=== PATIENT | female | born 1975 | race Caucasian/White ===

== ENCOUNTER 2016-02-20 13:27 | Emergency (ER) | payer BC ==
[~2016-02-20] VITALS: Ht 162.6 cm; Wt 79.0 kg
[~2016-02-20 13:27] MED LIST: ALBU1AER9 INH; ANT25 PO; CETI10TA84 PO; TRIA1SPR2 NAE
[2016-02-20 13:36] VITALS: TEMP 36.8; Ht 162.6 cm; Wt 79.0 kg
[2016-02-20] MEDS ORDERED: LORAZEPAM 2 MG/ML 1 ML VIAL IV STA ×2 (14:31→16:15)
[2016-02-20] MEDS ORDERED: OPTIRAY 320 IV PRN (15:00)
[2016-02-20 15:06] LABS: BASO % 0.6 %; BASO ABS # 0.07 K/uL (0-0.2); COMPLETE YES; EOS % 2.3 %; IG% 0.2 %; LYMPH % 24.2 %; LYMPH ABS # 2.71 K/uL (1.2-3.4); MEAN CELL VOLUME 85.6 fL (80-100); MEAN CORPUSCULAR HEMOGLOBIN 30.6 pg (25-34); MEAN CORPUSCULAR HGB CONC 35.8 g/dl (32-36); MEAN PLATELET VOLUME 9.6 fL (7.4-10.4); MONO % 4.6 %; NEUT % 68.1 %; PLATELET COUNT 331 K/uL (130-400); RED BLOOD COUNT 4.44 M/uL (4.2-5.4); WHITE BLOOD COUNT 11.21 K/uL (4.8-10.8)
[2016-02-20 15:27] LABS: BUN/CREATININE RATIO 13.4 (10-20); CALCIUM 8.7 mg/dl (8.5-10.1); CREATININE 0.71 mg/dl (0.60-1.20); POTASSIUM 3.8 mmol/L (3.5-5.1)
--- NOTE | 2016-02-20 16:34 | DIAGNOSTIC IMAGING REPORT ---
CERVICAL SPINE CT CT DOSE: 950.56 mGy.cm HISTORY: NECK/BACK PAIN S/P FALL TECHNIQUE: Multiaxial CT images of the cervical spine were performed and reformatted in the sagittal and coronal plane without the use of contrast. COMPARISON: None. FINDINGS: No fractures. No subluxation. Prevertebral soft tissues and the C1-C2 interval are intact. No pneumothorax. There is a 8 mm right thyroid nodule. IMPRESSION: No fractures within the cervical spine. An 8 mm right thyroid nodule. Electronically signed by: Yamil Barros M.D. 02/20/2016 4:23 PM
--- NOTE | 2016-02-20 16:34 | DIAGNOSTIC IMAGING REPORT ---
HEAD CT NONCONTRAST CT DOSE: HISTORY: Headache. Fall. TECHNIQUE: Multiaxial CT images of the head were performed without the use of intravenous contrast. Automated exposure control was utilized for this study. Comparison: Head CT 10/12/2015 Findings: The paranasal sinuses and mastoid air cells are clear. The calvarium and skull base are intact. The ventricles and sulci are within normal limits. There is no mass, hematoma, midline shift, or acute infarct. Impression: No acute intracranial abnormality. Electronically signed by: Yamil Barros M.D. 02/20/2016 4:20 PM
--- NOTE | 2016-02-20 16:36 | DIAGNOSTIC IMAGING REPORT ---
THORACIC SPINE CT CT DOSE: HISTORY: NECK/BACK PAIN S/P FALL TECHNIQUE: Multiaxial CT images of the thoracic spine were performed and reformatted in the sagittal and coronal plane without the use of contrast. COMPARISON: None. FINDINGS: No fractures. No subluxation. Paraspinal soft tissues are unremarkable. Mild degenerative disc disease within the mid thoracic spine. Small calcified disc fragment at T7-T8 this does not result significant central canal or neural foraminal narrowing. IMPRESSION: No fractures within the thoracic spine. Electronically signed by: Yamil Barros M.D. 02/20/2016 4:34 PM
--- NOTE | 2016-02-20 16:39 | DIAGNOSTIC IMAGING REPORT ---
LUMBAR SPINE CT CT DOSE: HISTORY: NECK/BACK PAIN S/P FALL TECHNIQUE: Multiaxial CT images of the lumbar spine were performed and reformatted in the sagittal and coronal plane without the use of contrast. COMPARISON: None. FINDINGS: No fractures. No subluxation. Paraspinal soft tissues are unremarkable. IMPRESSION: No fractures within the lumbar spine. Electronically signed by: Yamil Barros M.D. 02/20/2016 4:36 PM
--- NOTE | 2016-02-20 16:40 | DIAGNOSTIC IMAGING REPORT ---
ABDOMEN AND PELVIS CT WITH IV CONTRAST CT DOSE: 1017.19 mGy.cm HISTORY: Trauma. Pain. LBP/tailbone pain s/p fall TECHNIQUE: Multiaxial CT images of the abdomen and pelvis were performed following the use of intravenous contrast. COMPARISON STUDY: None. FINDINGS: The lung bases are clear. The liver, spleen, gallbladder, pancreas, kidneys, and adrenal glands are within normal limits. No bowel wall thickening or obstruction. The pelvic organs are unremarkable. No suspicious lytic or blastic osseous lesions. 2.5 cm left ovarian cyst. IMPRESSION: No significant abnormality identified within the abdomen or pelvis. 2.5 cm left ovarian cyst Electronically signed by: Lui Allan M.D. 02/20/2016 4:38 PM
--- NOTE | 2016-02-20 16:44 | DIAGNOSTIC IMAGING REPORT ---
CHEST CT WITH CONTRAST CT DOSE: HISTORY: Right SIDED CHEST PAIN/POSTERIOR RIB PAIN S/P FALL TECHNIQUE: Multiaxial CT images of the chest were performed following the intravenous administration of contrast. COMPARISON: None. FINDINGS: There is a 4 mm indeterminate pulmonary nodule within the right middle lobe on image 164. There is an 8 mm right thyroid nodule. The mediastinal vascular structures are within normal limits. No mediastinal or hilar lymphadenopathy. No pleural effusion or pneumothorax. Limited views of the upper abdomen demonstrate a normal liver and spleen. IMPRESSION: No significant abnormality identified within the chest. A 4 mm right middle lobe indeterminate pulmonary nodule. Please refer to the chart below for recommended follow-up. Please refer to below summary of Fleischner criteria recommendations for follow-up of incidental CT nodules (Claire Thomas, Guidelines for management of small pulmonary nodules detected on CT scans: A statement from the Fleischner Society, Radiology 237: [phone].) Low Risk Patient: Minimal or no smoking or other known risk factors for malignancy <=4 mm: No follow-up needed. >4-6 mm: Initial follow-up CT at 12 months; if unchanged, no further follow-up. >6-8 mm: Initial follow-up CT at 6-12 months then at 18-24 months if no change. >8 mm: Follow-up CT at \R\3, 9, 24 months, or PET and/or biopsy. High Risk Patient: History of smoking or other known risk factors <=4 mm: Follow-up at 12 months; if unchanged, no further follow-up. >4-6 mm: Initial follow-up CT at 6-12 months then at 18-24 months if no change. >6-8 mm: Initial follow-up CT at 3-6 months then at 9-12 and 24 months if no change. >8 mm: Same as low risk patient. Note: Nodule size measured as average of length and width. Ground glass or partly solid nodules may require longer follow-up to exclude indolent adenocarcinoma. Electronically signed by: Yamil Barros M.D. 02/20/2016 4:42 PM
[2016-02-20 17:04] VITALS: BP 121/86; PULSE 77; O2SAT 97
--- NOTE | 2016-02-20 19:21 | EMERGENCY ROOM VISIT NOTE ---
History First contact with patient: 14:18 Chief Complaint: CHEST PAIN Stated Complaint: CHEST PAIN, LIGHTHEADED, DIZZY Nursing Triage Summary: chest pain started at 0830 while at rest pt c/o right sided pain "feels like stabbing" pt fell yesterday unrelated and c/o all over bodyaches and back pain History of Present Illness The patient is a 40 year old female who presents to the Emergency Room with complaints of multiple symptoms after falling yesterday while rollerskating. The patient reports that she landed directly on her buttocks, and felt pain go up her back and into the neck. The patient reports that she is now started to develop a generalized headache that is progressively worsened. She reports feeling nauseated and weak. She reports discomfort in the right side of her chest. She denies any shortness of breath, and her symptoms are not worsened with deep breathing. She denies any paresthesias or numbness of the upper or lower extremities. She rates her overall discomfort a 5 out of 10. Review of Systems HEENT: Denies dizziness, visual problems, hearing loss, tinnitus. Denies difficulty swallowing or oral lesions. PULMONARY: Denies cough, shortness of breath, sputum production or hemoptysis. CARDIOVASCULAR: Denies palpitations, dyspnea on exertion, orthopnea or peripheral edema. GASTROINTESTINAL: Denies diarrhea, constipation, nausea, vomiting, or abdominal pain. GENITOURINARY: Denies dysuria, frequency, urgency or nocturia. NEUROLOGIC: Denies history of epilepsy, CVA, TIA or chronic headaches. MUSCULOSKELETAL: Denies history of joint tenderness/swelling. SKIN: Denies rashes or lesions. PSYCHIATRIC: Denies history of depression or mental illness. ENDOCRINE: Denies history of diabetes or thyroid disorders. Past Medical/Surgical History Medical Problems: (1) Asthma (2) Hx of migraines (3) IBS (irritable bowel syndrome) Surgical Problems: (1) History of appendectomy (2) History of tonsillectomy Family History Cancer Diabetes mellitus Gallbladder disease Heart disease Hypertension Lung disease Social History Smoking Status: Never Smoker Alcohol Use: none Drug Use: none Marital Status: Housing Status: lives with family Occupation Status: employed Current/Historical Medications Scheduled Cetirizine (Zyrtec), 10 MG PO DAILY Multivitamin (Multivitamin), 1 TAB PO DAILY Triamcinolone Acetonide (Nasal (Nasacort-Aq Nasal Inh), 1 SPRAY KAMRAN DAILY Scheduled PRN Albuterol (Proair Hfa), 2 PUFFS INH Q4H PRN for SOB/Wheeze/Prior To Exercise Epinephrine (Epipen), 0.3 MG IM UD PRN for ALLERGIC REACTION Allergies Coded Allergies: Prednisone (Verified Adverse Reaction, Intermediate, HYPERTENSION, 02/20/16) Physical Exam Vital Signs Date Time Temp Pulse Resp B/P Pulse Ox O2 Delivery O2 Flow Rate FiO2 02/20/16 17:04 77 20 121/86 97 Room Air 02/20/16 15:34 77 20 159/101 100 Room Air 02/20/16 13:36 36.8 80 20 154/93 98 Room Air Pain Rating (0-10): 5.0 Physical Exam CONSTITUTIONAL: Healthy and well nourished. Alert and oriented X 3 with positive affect. Patient appears in moderate discomfort with pain. HEENT: Normocephalic, atraumatic. Pupils equal, round and reactive. No epistaxis, hemotympanum, raccoon's eyes, subconjunctival hemorrhage or Bryant sign. NECK: Examination shows generalized tenderness to palpation of the right cervical musculature. She is otherwise moving the neck without significant discomfort. RESPIRATORY: Clear to auscultation bilaterally with no wheezing, crackles, rhonchi or stridor. Deep breathing does not worsen her discomfort. CARDIOVASCULAR: Regular rate and rhythm with no murmurs, rubs or gallops. GASTROINTESTINAL: Bowel sounds present in all quadrants. Soft and nontender to palpation. MUSCULOSKELETAL: Complaining comprehensive musculoskeletal exam was performed. The patient has mild tenderness to palpation through the thoracolumbar spine and paraspinous muscles. No palpable spasms noted. She has mild tenderness over the sacral region and SI joints. Pelvis stable with rock. Negative logroll. Negative straight leg raise. The patient has no tenderness to palpation through the anterior ribs or costochondral joints. Upper and lower extremity distal pulses are intact. INTEGUMENTARY: No rash or other significant dermatologic conditions noted. NEUROLOGIC: Cranial nerves II-XII grossly intact. No focal neurologic deficits noted. Upper and lower extremities are sensory intact. Medical Decision & Procedures ER Provider Diagnostic Interpretation: Multiple CT imaging studies were performed of the head, cervical spine, thoracolumbar spine, pelvis, abdomen and chest, all of which were normal. The patient did have incidental findings of an 8 mm right thyroid nodule, 4 mm right lung nodule, and 2.5 cm left ovarian cyst. The patient is aware of her thyroid nodule and has a history of ovarian cysts. Radiologist reports were reviewed. Laboratory Results 02/20/16 14:55 Red Blood Count 4.44, Mean Corpuscular Volume 85.6, Mean Corpuscular Hemoglobin 30.6, Mean Corpuscular Hemoglobin Concent 35.8, Mean Platelet Volume 9.6, Neutrophils (%) (Auto) 68.1, Lymphocytes (%) (Auto) 24.2, Monocytes (%) (Auto) 4.6, Eosinophils (%) (Auto) 2.3, Basophils (%) (Auto) 0.6, Neutrophils # (Auto) 7.63, Lymphocytes # (Auto) 2.71, Monocytes # (Auto) 0.52, Eosinophils # (Auto) 0.26, Basophils # (Auto) 0.07 02/20/16 14:55 Test 02/20/16 14:55 White Blood Count 11.21 K/uL (4.8-10.8) Red Blood Count 4.44 M/uL (4.2-5.4) Hemoglobin 13.6 g/dL (12.0-16.0) Hematocrit 38.0 % (37-47) Mean Corpuscular Volume 85.6 fL (80-100) Mean Corpuscular Hemoglobin 30.6 pg (25-34) Mean Corpuscular Hemoglobin Concent 35.8 g/dl (32-36) Platelet Count 331 K/uL (130-400) Mean Platelet Volume 9.6 fL (7.4-10.4) Neutrophils (%) (Auto) 68.1 % Lymphocytes (%) (Auto) 24.2 % Monocytes (%) (Auto) 4.6 % Eosinophils (%) (Auto) 2.3 % Basophils (%) (Auto) 0.6 % Neutrophils # (Auto) 7.63 K/uL (1.4-6.5) Lymphocytes # (Auto) 2.71 K/uL (1.2-3.4) Monocytes # (Auto) 0.52 K/uL (0.11-0.59) Eosinophils # (Auto) 0.26 K/uL (0-0.5) Basophils # (Auto) 0.07 K/uL (0-0.2) RDW Standard Deviation 41.5 fL (36.4-46.3) RDW Coefficient of Variation 13.2 % (11.5-14.5) Immature Granulocyte % (Auto) 0.2 % Immature Granulocyte # (Auto) 0.02 K/uL (0.00-0.02) Anion Gap 11.0 mmol/L (3-11) Est Creatinine Clear Calc Drug Dose 107.1 ml/min Estimated GFR () 123.5 Estimated GFR (Non- 106.5 BUN/Creatinine Ratio 13.4 (10-20) Calcium Level 8.7 mg/dl (8.5-10.1) Medications Administered Medications (Trade) Dose Ordered Sig/Igor Route Start Time Stop Time Status Last Admin Dose Admin Lorazepam (Ativan Inj) 1 mg NOW STAT IV 02/20/16 14:31 02/20/16 14:35 DC 02/20/16 15:32 1 MG Lorazepam (Ativan Inj) 1 mg NOW STAT IV 02/20/16 16:15 02/20/16 16:16 DC 02/20/16 16:15 1 MG ED Course Patient history and physical exam were performed. Nurse's notes were reviewed. Vital signs were reviewed and were normal. The patient refused analgesics, but reported that if she needed a CT scan, she would need some medicine that she is extremely claustrophobic. She was administered Ativan 1 mg IVP. While in the scanner, she did require an additional dose of Ativan 1 mg IVP. The patient tolerated the remainder of her CT study. CT images were normal. The patient was advised that her symptoms are likely secondary to compression injury of her back. I also suspect that her headache is from a concussion, although she did not hit her head. The patient was instructed to rest and remain well-hydrated. Ibuprofen and Tylenol in alternating fashion as needed for pain relief. She was encouraged to follow-up with her PCP for further management, returning to the emergency department for any significantly worsening symptoms. The patient was happy with plan of care, voiced understanding of all discharge instructions, and rated her pain a 4 out of 10 at the conclusion of my exam. Medical Decision See previous section Impression Primary Impression: Concussion Additional Impressions: Thyroid nodule, Back strain, Fall from roller skates, Left ovarian cyst, Nodule of right lung Departure Information Dispostion Home / Self-Care Condition GOOD Forms HOME CARE DOCUMENTATION FORM, IMPORTANT VISIT INFORMATION Patient Instructions A Signature Page, [facility], ED Concussion Additional Instructions Rest and avoid strenuous activities. Intermittently apply ice to areas of discomfort. Read concussion handout. Ibuprofen 800 mg and/or Tylenol 1000 mg every 8 hours. You may also alternate these medications for more effective pain relief: Ibuprofen --4 HRS--> Tylenol --4 HRS--> ibuprofen --4 HRS--> Tylenol .... Follow-up with your family doctor as needed for further management.
== END 2016-02-20 17:12 | disposition home or self-care (01) ==
LOC: C.EDB 13:30
DX: S06.0X0A Concussion without loss of consciousness, initial encounter (principal); S39.012A Strain of muscle, fascia and tendon of lower back, initial encounter; W19.XXXA Unspecified fall, initial encounter; Y93.51 Activity, roller skating (inline) and skateboarding; N83.202 Unspecified ovarian cyst, left side; R91.1 Solitary pulmonary nodule; E04.1 Nontoxic single thyroid nodule; J45.909 Unspecified asthma, uncomplicated; K58.9 Irritable bowel syndrome, unspecified; Z98.890 Other specified postprocedural states; Z88.8 Allergy status to other drugs, medicaments and biological substances; Z80.9 Family history of malignant neoplasm, unspecified; Z83.3 Family history of diabetes mellitus; Z83.79 Family history of other diseases of the digestive system; Z82.49 Family history of ischemic heart disease and other diseases of the circulatory system

== ENCOUNTER 2016-09-12 15:38 | Emergency (ER) | payer BC ==
[~2016-09-12] VITALS: Ht 162.6 cm; Wt 78.0 kg
[~2016-09-12 15:38] MED LIST changes: -ANT25 PO
[2016-09-12 15:42] VITALS: TEMP 36.7; Ht 162.6 cm; Wt 78.0 kg
[2016-09-12] MEDS ORDERED: METOCLOPRAMIDE HCL INJ 5 MG/ML 2 ML VIAL IV STA (15:56)
[2016-09-12] MEDS ORDERED: KETOROLAC TROMETHAMINE 30 MG/ML VIAL IV STA (15:56)
[2016-09-12] MEDS ORDERED: SODIUM CHLORIDE 0.9% 1000ML 1,000 ML IV STA (15:56)
--- NOTE | 2016-09-12 15:56 | EMERGENCY ROOM VISIT NOTE ---
History Report prepared by Kadeem: Pal Ramirez Under the Supervision of: Dr. Trever Hernandez M.D. First contact with patient: 15:46 Chief Complaint: ABDOMINAL PAIN Stated Complaint: SHARP LEFT LOWER ABD PAIN, LEFT UPPER FLANK CRAMP History of Present Illness The patient is a 40 year old female who presents to the Emergency Room with complaints of worsening left lower quadrant abdominal pain starting last week. She describes it as a sharp pain. She was evaluated by a walk-in clinic this week. 2 days ago, she had a pelvic ultrasound with negative results. She is now also having left flank pain. She was referred to the Emergency Room by her PCP. The patient denies any blood in stool, urinary symptoms, or any other complaints. She has an IUD. She denies any chance of . The patient had a colonoscopy done in September 2012 which was concerning for hemorrhoids and constipation. Source of History: patient Onset: last week Position: abdomen (LLQ) Quality: sharp Timing: worsening Associated Symptoms: No urinary symptoms Review of Systems See HPI for pertinent positives & negatives. A total of 10 systems reviewed and were otherwise negative. Past Medical & Surgical Medical Problems: (1) Asthma (2) Bronchitis (3) Hx of migraines (4) IBS (irritable bowel syndrome) (5) Pneumonia Surgical Problems: (1) History of appendectomy (2) History of appendectomy (3) History of tonsillectomy (4) History of tonsillectomy Family History Cancer Diabetes mellitus Gallbladder disease Heart disease Hypertension Lung disease Social History Smoking Status: Never Smoker Alcohol Use: none Drug Use: none Marital Status: Housing Status: lives with family Occupation Status: employed Current/Historical Medications Scheduled Cyanocobalamin (Vitamin B-12 1000 Mcg), 1 TAB SL DAILY Loratadine (Claritin), 10 MG PO DAILY Multivitamin (Multivitamin), 1 TAB PO DAILY Sertraline HCl (Sertraline HCl), 50 MG PO DAILY [Richie], 1 TAB PO DAILY Scheduled PRN Clonazepam (Klonopin), 0.5 MG PO TID PRN for Anxiety/Insomnia Epinephrine (Epipen), 0.3 MG IM UD PRN for ALLERGIC REACTION Triamcinolone Acetonide (Nasal (Nasacort Allergy 24Hr), 1 SPRAY KAMRAN DAILY PRN for Nasal Congestion [Proair], 2 PUFF INH Q4 PRN for SOB/WHEEZE/PRIOR TO EXERCISE Allergies Coded Allergies: Prednisone (Verified Adverse Reaction, Intermediate, HYPERTENSION, 02/20/16) Physical Exam Vital Signs Date Time Temp Pulse Resp B/P (MAP) Pulse Ox O2 Delivery O2 Flow Rate FiO2 09/12/16 17:28 79 18 134/84 98 Room Air 09/12/16 15:42 36.7 88 20 137/98 97 Room Air Physical Exam GENERAL: Patient is a healthy-appearing well-nourished HEAD: Normocephalic atraumatic EYES: Ocular movements intact pupils equal and react to light OROPHARYNX mucous membranes are moist no exudates present no erythema or edema present NECK: Supple no nuchal rigidity CHEST: Good equal expansion LUNGS: Clear and equal to auscultation CARDIAC: Normal S1 and S2 ABDOMEN: Soft nontender no guarding BACK: No CVA tenderness EXTREMITIES: No pain upon palpation normal muscle strength in all groups no clubbing cyanosis or edema NEURO: Patient is following commands and answering questions appropriately. Alert and oriented x3 Cranial Nerves 2-12 grossly intact Medical Decision & Procedures ER Provider Diagnostic Interpretation: CT results as stated below per my review and radiologist interpretation: CT OF THE ABDOMEN AND PELVIS WITHOUT CONTRAST CLINICAL HISTORY: Left flank pain. COMPARISON STUDY: CT of the abdomen and pelvis July or 2016. TECHNIQUE: Axial images of the abdomen and pelvis were obtained without IV contrast. Images were reviewed in the axial, sagittal, and coronal planes. A dose lowering technique was utilized adhering to the principles of ALARA. FINDINGS: No renal, ureteral or bladder calculi are identified. There is no hydronephrosis or hydroureter. Evaluation of the abdomen and pelvis is suboptimal on this unenhanced exam. The liver, spleen, adrenal glands and pancreas are unremarkable. There is no evidence for a bowel obstruction. The appendix is not visualized. An intrauterine device is appropriately positioned by CT. Note is made of a 2.6 cm hypodense lesion arising from the left ovary. There may be additional 2.7 cm intermediate attenuation left ovarian lesion. Skeletal structures are unremarkable. IMPRESSION: 1. No urinary calculi or hydronephrosis. 2. No acute process within the abdomen or pelvis on unenhanced exam. 3. Two left ovarian lesions. One lesion likely reflects a cyst/dominant follicle while the other lesion is intermediate attenuation. This may reflect a hemorrhagic cyst. A follow-up pelvic ultrasound in 6 weeks to ensure resolution is recommended. Electronically signed by: Raúl Love M.D. 09/12/2016 4:44 PM Dictated Date/Time: 09/12/2016 4:36 PM Laboratory Results 09/12/16 15:15 Red Blood Count 4.38, Mean Corpuscular Volume 87.2, Mean Corpuscular Hemoglobin 30.4, Mean Corpuscular Hemoglobin Concent 34.8, Mean Platelet Volume 9.7, Neutrophils (%) (Auto) 67.4, Lymphocytes (%) (Auto) 22.7, Monocytes (%) (Auto) 6.8, Eosinophils (%) (Auto) 2.3, Basophils (%) (Auto) 0.6, Neutrophils # (Auto) 7.78, Lymphocytes # (Auto) 2.62, Monocytes # (Auto) 0.78, Eosinophils # (Auto) 0.27, Basophils # (Auto) 0.07 09/12/16 15:15 Test 09/12/16 15:15 09/12/16 16:00 White Blood Count 11.54 K/uL (4.8-10.8) Red Blood Count 4.38 M/uL (4.2-5.4) Hemoglobin 13.3 g/dL (12.0-16.0) Hematocrit 38.2 % (37-47) Mean Corpuscular Volume 87.2 fL (80-100) Mean Corpuscular Hemoglobin 30.4 pg (25-34) Mean Corpuscular Hemoglobin Concent 34.8 g/dl (32-36) Platelet Count 369 K/uL (130-400) Mean Platelet Volume 9.7 fL (7.4-10.4) Neutrophils (%) (Auto) 67.4 % Lymphocytes (%) (Auto) 22.7 % Monocytes (%) (Auto) 6.8 % Eosinophils (%) (Auto) 2.3 % Basophils (%) (Auto) 0.6 % Neutrophils # (Auto) 7.78 K/uL (1.4-6.5) Lymphocytes # (Auto) 2.62 K/uL (1.2-3.4) Monocytes # (Auto) 0.78 K/uL (0.11-0.59) Eosinophils # (Auto) 0.27 K/uL (0-0.5) Basophils # (Auto) 0.07 K/uL (0-0.2) RDW Standard Deviation 41.6 fL (36.4-46.3) RDW Coefficient of Variation 13.0 % (11.5-14.5) Immature Granulocyte % (Auto) 0.2 % Immature Granulocyte # (Auto) 0.02 K/uL (0.00-0.02) Anion Gap 10.0 mmol/L (3-11) Est Creatinine Clear Calc Drug Dose 102.2 ml/min Estimated GFR () 117.5 Estimated GFR (Non- 101.3 BUN/Creatinine Ratio 18.2 (10-20) Calcium Level 9.0 mg/dl (8.5-10.1) Total Bilirubin 0.7 mg/dl (0.2-1) Direct Bilirubin 0.1 mg/dl (0-0.2) Aspartate Amino Transf (AST/SGOT) 6 U/L (15-37) Alanine Aminotransferase (ALT/SGPT) 15 U/L (12-78) Alkaline Phosphatase 31 U/L (45-117) Total Protein 7.5 gm/dl (6.4-8.2) Albumin 3.8 gm/dl (3.4-5.0) Lipase 135 U/L (73-393) Urine Color YELLOW Urine Appearance TURBID (CLEAR) Urine pH 8.5 (4.5-7.5) Urine Specific [place] 1.028 (1.000-1.030) Urine Protein NEG (NEG) Urine Glucose (UA) NEG (NEG) Urine Ketones NEG (NEG) Urine Occult Blood NEG (NEG) Urine Nitrite NEG (NEG) Urine Bilirubin NEG (NEG) Urine Urobilinogen NEG (NEG) Urine Leukocyte Esterase NEG (NEG) Urine WBC (Auto) 1-5 /hpf (0-5) Urine RBC (Auto) 5-10 /hpf (0-4) Urine Hyaline Casts (Auto) 1-5 /lpf (0-5) Urine Epithelial Cells (Auto) 10-20 /lpf (0-5) Urine Bacteria (Auto) NEG (NEG) Urine Test NEG (NEG) Labs reviewed by ED physician. Medications Administered Medications (Trade) Dose Ordered Sig/Igor Route Start Time Stop Time Status Last Admin Dose Admin Sodium Chloride 1,000 ml @ 999 mls/hr Q1H1M STAT IV 09/12/16 15:56 09/12/16 16:56 DC 09/12/16 15:56 999 MLS/HR Ketorolac Tromethamine (Toradol Inj) 30 mg NOW STAT IV 09/12/16 15:56 09/12/16 15:58 DC 09/12/16 16:18 30 MG Metoclopramide HCl (Reglan Inj) 10 mg NOW STAT IV 09/12/16 15:56 09/12/16 15:58 DC 09/12/16 15:56 10 MG Lorazepam (Ativan Inj) 1 mg NOW STAT IV 09/12/16 16:09 09/12/16 16:10 DC 09/12/16 16:18 1 MG ED Course 1546: Past medical records reviewed. The patient was evaluated in room C03. A complete history and physical examination was performed. 1556: Reglan Inj 10 mg IV, Toradol Inj 30 mg IV, Sodium Chloride 1000 ml @ 999 mls/hr IV 1609: Ativan Inj 1 mg IV 1701: Magnesium Citrate 296 ml PO 1705: Upon reexamination the patient is resting comfortably. I discussed results and treatment plan with the patient. She verbalizes agreement and understanding. The patient is ready for discharge. Medical Decision Differential diagnosis: Etiologies such as appendicitis, diverticulitis, PUD, biliary pathology, UTI, pancreatitis, obstruction, mesenteric ischemia, aortic pathology, infections, inflammatory bowel disease, renal colic, as well as others were entertained. This is a 40-year-old female who presents emergency department complaining of left lower quadrant abdominal pain. The patient recently had a ultrasound performed which showed 2 ovarian cysts. The patient refused to have another ultrasound performed. She was sent for CAT scan of the abdomen pelvis. 2 missing out of the ordinary on the CAT scan was the concern over her ovarian cysts. I stressed the need for follow-up with gynecology. Serial abdominal examinations were performed on this patient and at no time did the patient have abdominal tenderness or surgical abdomen. I believe based on these findings at the patient can be safely discharged home for follow-up with OB. Patient was in agreement with the treatment plan. Medication Reconcilliation Current Medication List: was personally reviewed by me Blood Pressure Screening Patient's blood pressure: Elevated blood pressure Blood pressure disposition: Referred to PCP Impression Primary Impression: Left lower quadrant abdominal pain of unknown etiology Scribe Attestation The scribe's documentation has been prepared under my direction and personally reviewed by me in its entirety. I confirm that the note above accurately reflects all work, treatment, procedures, and medical decision making performed by me. Departure Information Dispostion Home / Self-Care Referrals Rajan Hare M.D.(MARTÍN) (PCP) Yogi Espinoza MD Forms Call Back Authorization, HOME CARE DOCUMENTATION FORM, IMPORTANT VISIT INFORMATION Patient Instructions My [facility] Additional Instructions Follow up with DR Espinoza's office for ovarian cysts Take 1/2 bottle of Mag Citrate Repeat second half in six hours Clear liquid diet next 48 hours You were found to have an elevated blood pressure today (>120 sytolic or >90 diastolic). Per medicare guidelines, you need to follow up with this blood pressure screening with your Primary Care Physician (PCP). For a new PCP call [phone]. You received narcotic or benzodiazepene medication while in the emergency room today. Do not drive, operate heavy machinery, or drink alcohol under the influence of this medication. Take 600 mg Ibuprofen every 6 hours Culture results are usually available in approx 48 hours You have been examined and treated today on an emergency basis only. This is not a substitute for, or an effort to provide, complete comprehensive medical care. It is impossible to recognize and treat all injuries or illnesses in a single emergency department visit. It is therefore important that you follow up closely with Dr Hare. Call as soon as possible for an appointment. Thank you for your time and consideration. I look forward to speaking with you again soon. Please don't hesitate to call us if you have any questions.
[2016-09-12] MEDS ORDERED: LORAZEPAM 2 MG/ML 1 ML VIAL IV STA (16:09)
[2016-09-12 16:27] LABS: URINE APPEARANCE TURBID (CLEAR); URINE BILIRUBIN NEG (NEG); URINE COLOR YELLOW; URINE NITRITE NEG (NEG); URINE PH 8.5 (4.5-7.5); URINE SPECIFIC GRAVITY 1.028 (1.000-1.030); UROBILINOGEN NEG (NEG)
[2016-09-12] MEDS ORDERED: GABA PO (16:36)
[2016-09-12] MEDS ORDERED: PROAIR INH (16:36)
[2016-09-12] MEDS ORDERED: ZLF/50 PO (16:36)
[2016-09-12] MEDS ORDERED: CLR10 PO (16:36)
[2016-09-12] MEDS ORDERED: CLON0.5T3 PO (16:36)
[2016-09-12] MEDS ORDERED: CYAN10004 SL (16:36)
[2016-09-12] MEDS ORDERED: TRIA1SPR4 NAE (16:36)
--- NOTE | 2016-09-12 16:46 | DIAGNOSTIC IMAGING REPORT ---
CT OF THE ABDOMEN AND PELVIS WITHOUT CONTRAST CLINICAL HISTORY: Left flank pain. COMPARISON STUDY: CT of the abdomen and pelvis July or 2016. TECHNIQUE: Axial images of the abdomen and pelvis were obtained without IV contrast. Images were reviewed in the axial, sagittal, and coronal planes. A dose lowering technique was utilized adhering to the principles of ALARA. FINDINGS: No renal, ureteral or bladder calculi are identified. There is no hydronephrosis or hydroureter. Evaluation of the abdomen and pelvis is suboptimal on this unenhanced exam. The liver, spleen, adrenal glands and pancreas are unremarkable. There is no evidence for a bowel obstruction. The appendix is not visualized. An intrauterine device is appropriately positioned by CT. Note is made of a 2.6 cm hypodense lesion arising from the left ovary. There may be additional 2.7 cm intermediate attenuation left ovarian lesion. Skeletal structures are unremarkable. IMPRESSION: 1. No urinary calculi or hydronephrosis. 2. No acute process within the abdomen or pelvis on unenhanced exam. 3. Two left ovarian lesions. One lesion likely reflects a cyst/dominant follicle while the other lesion is intermediate attenuation. This may reflect a hemorrhagic cyst. A follow-up pelvic ultrasound in 6 weeks to ensure resolution is recommended. Electronically signed by: Raúl Love M.D. 09/12/2016 4:44 PM Dictated Date/Time: 09/12/2016 4:36 PM
[2016-09-12 16:47] LABS: MANUAL MICROSCOPIC REQUIRED? NO; REVIEW REQ? NO
[2016-09-12 16:54] LABS: BUN/CREATININE RATIO 18.2 (10-20); CREATININE 0.74 mg/dl (0.60-1.20); POTASSIUM 4.1 mmol/L (3.5-5.1)
[2016-09-12] MEDS ORDERED: MAGNESIUM CITRATE 296 ML/BTL PO STA (17:01)
[2016-09-12] MEDS ORDERED: EPP3/2 IM (17:20)
[2016-09-12 17:28] VITALS: BP 134/84; PULSE 79; O2SAT 98
[2016-09-12 17:30] LABS: BASO % 0.6 %; BASO ABS # 0.07 K/uL (0-0.2); COMPLETE YES; EOS % 2.3 %; HEMATOCRIT 38.2 % (37-47); IG% 0.2 %; LYMPH % 22.7 %; LYMPH ABS # 2.62 K/uL (1.2-3.4); MEAN CELL VOLUME 87.2 fL (80-100); MEAN CORPUSCULAR HEMOGLOBIN 30.4 pg (25-34); MEAN CORPUSCULAR HGB CONC 34.8 g/dl (32-36); MEAN PLATELET VOLUME 9.7 fL (7.4-10.4); MONO % 6.8 %; NEUT % 67.4 %; PLATELET COUNT 369 K/uL (130-400); RED BLOOD COUNT 4.38 M/uL (4.2-5.4); WHITE BLOOD COUNT 11.54 K/uL (4.8-10.8)
[2016-09-12] MEDS ORDERED: MULT-506 PO (19:00)
== END 2016-09-12 17:37 | disposition home or self-care (01) ==
LOC: C.EDB 15:40 → C.EDC 17:37
DX: R10.32 Left lower quadrant pain (principal); J45.909 Unspecified asthma, uncomplicated; K58.9 Irritable bowel syndrome, unspecified; Z83.3 Family history of diabetes mellitus; Z82.49 Family history of ischemic heart disease and other diseases of the circulatory system

== ENCOUNTER 2016-10-01 01:59 | Emergency (ER) | payer BC ==
[~2016-10-01] VITALS: Ht 162.6 cm; Wt 78.7 kg
[~2016-10-01 01:59] MED LIST changes: -ALBU1AER9 INH; -CETI10TA84 PO; +CLON0.5T3 PO; +CLR10 PO; +CYAN10004 SL; +EPP3/2 IM; +GABA PO; +MULT-506 PO; +PROAIR INH; -TRIA1SPR2 NAE; +TRIA1SPR4 NAE; +ZLF/50 PO
[2016-10-01 02:02] VITALS: TEMP 36.5; Ht 162.6 cm; Wt 78.7 kg
[2016-10-01] MEDS ORDERED: LORAZEPAM 2 MG/ML 1 ML VIAL IV STA (02:13)
[2016-10-01 02:23] VITALS: O2SAT 98
[2016-10-01] MEDS ORDERED: ZLF/100 PO (02:24)
[2016-10-01] MEDS ORDERED: ALBU18002 PO (02:25)
[2016-10-01 02:40] LABS: BASO % 0.6 %; BASO ABS # 0.07 K/uL (0-0.2); COMPLETE YES; HEMATOCRIT 40.4 % (37-47); IG% 0.2 %; LYMPH % 28.2 %; LYMPH ABS # 3.22 K/uL (1.2-3.4); MEAN CELL VOLUME 88.2 fL (80-100); MEAN CORPUSCULAR HEMOGLOBIN 30.1 pg (25-34); MEAN CORPUSCULAR HGB CONC 34.2 g/dl (32-36); MEAN PLATELET VOLUME 9.6 fL (7.4-10.4); MONO % 7.5 %; NEUT % 59.5 %; PLATELET COUNT 351 K/uL (130-400); RED BLOOD COUNT 4.58 M/uL (4.2-5.4); WHITE BLOOD COUNT 11.42 K/uL (4.8-10.8)
[2016-10-01 03:01] LABS: ALT/SGPT 16 U/L (12-78); AST/SGOT 4 U/L (15-37); BLOOD UREA NITROGEN 12 mg/dl (7-18); BUN/CREATININE RATIO 16.8 (10-20); CALCIUM 8.6 mg/dl (8.5-10.1); CARBON DIOXIDE 27 mmol/L (21-32); CHLORIDE 107 mmol/L (98-107); CREATININE 0.74 mg/dl (0.60-1.20); GLUCOSE 103 mg/dl (70-99); MAGNESIUM 2.3 mg/dl (1.8-2.4); POTASSIUM 4.2 mmol/L (3.5-5.1); SODIUM 140 mmol/L (136-145)
[2016-10-01 03:04] LABS: ALKALINE PHOSPHATASE 35 U/L (45-117)
[2016-10-01 03:05] LABS: PREG INTERNAL NEGATIVE QC NEG CLEAR BACKGROUND; PREG INTERNAL POSITIVE QC POS CONTROL LINE
--- NOTE | 2016-10-01 04:04 | EMERGENCY ROOM VISIT NOTE ---
History First contact with patient: 02:06 Chief Complaint: RESPIRATORY PROBLEMS Stated Complaint: BREATHING, PAIN Nursing Triage Summary: pt states she awoke with difficulty catching her breath and pain with deep inspiration. unsure if she was having a panic attack or something else. History of Present Illness The patient is a 40 year old female who presents to the Emergency Room with complaints of left upper quadrant discomfort for the past 2 hours. Patient states the pain woke her up out of sleep. Patient states she now feels as if she is having a panic attack as she is worried about the pain. Patient states she's had multiple CT scans and she does not want anymore. She had a colonoscopy recently that showed constipation and hemorrhoids. Pain currently 5 out of 10. Movement makes it worse and nothing makes it better. No injury to the area. Patient denies chest pain, dyspnea, cough, fever, chills, vomiting , diarrhea, back pain, rash, urinary symptoms. She is tolerate by mouth fluids and food. Patient does not smoke. No real exercise. No direct injury to the area. Patient has been lifting her 6 year-old more though. Review of Systems See HPI for pertinent positives & negatives. A total of 10 systems reviewed and were otherwise negative. Past Medical/Surgical History Medical Problems: (1) Asthma (2) Bronchitis (3) Hx of migraines (4) IBS (irritable bowel syndrome) (5) Pneumonia Surgical Problems: (1) History of appendectomy (2) History of appendectomy (3) History of tonsillectomy (4) History of tonsillectomy Family History Cancer Diabetes mellitus Gallbladder disease Heart disease Hypertension Lung disease Social History Smoking Status: Never Smoker Alcohol Use: none Drug Use: none Marital Status: Housing Status: lives with family Occupation Status: employed Current/Historical Medications Scheduled Cyanocobalamin (Vitamin B-12 1000 Mcg), 1 TAB SL DAILY Loratadine (Claritin), 10 MG PO DAILY Multivitamin (Multivitamin), 1 TAB PO DAILY Sertraline HCl (Sertraline HCl), 100 MG PO DAILY [Richie], 1 TAB PO DAILY Scheduled PRN Albuterol Sulfate (Proair Respiclick), 2 PUFFS PO Q4 PRN for SOB/Wheezing Clonazepam (Klonopin), 0.5 MG PO TID PRN for Anxiety/Insomnia Epinephrine (Epipen), 0.3 MG IM UD PRN for ALLERGIC REACTION Triamcinolone Acetonide (Nasal (Nasacort Allergy 24Hr), 1 SPRAY KAMRAN DAILY PRN for Nasal Congestion Physical Exam Vital Signs Date Time Temp Pulse Resp B/P (MAP) Pulse Ox O2 Delivery O2 Flow Rate FiO2 10/01/16 03:38 59 18 102/63 96 Room Air 10/01/16 02:30 98 Room Air 10/01/16 02:28 71 18 128/92 98 Room Air 10/01/16 02:25 67 10/01/16 02:23 98 Room Air 10/01/16 02:23 98 Room Air 10/01/16 02:02 36.5 73 18 145/90 100 Room Air 10/01/16 02:02 100 Room Air Physical Exam VITALS: Vitals are noted on the nurse's note and reviewed by myself. Vital signs stable. GENERAL: Pleasant female anxious-appearing, in no acute distress, nondiaphoretic , well-developed well-nourished. SKIN: The skin was without rashes, erythema, edema, or bruising. There is no tenting of the skin. Capillary reflex less than 2 seconds. HEAD: Normocephalic atraumatic. EARS: External auditory canals clear, tympanic membranes pearly parrish without erythema or effusion bilaterally. EYES: Pupils equal round and reactive to light and accommodation. Conjunctivae without injection, sclerae without icterus. Extraocular movements intact. NOSE: Patent, turbinates without inflammation or discharge. MOUTH: Mucous membranes moist. Pharynx without erythema or exudate. Uvula midline. Airway patent. Tongue does not deviate. NECK: Supple without nuchal rigidity. No lymphadenopathy. No thyromegaly. Cervical spine is nontender. No JVD. HEART: Regular rate and rhythm without murmurs gallops or rubs. LUNGS: Clear to auscultation bilaterally without wheezes, rales or rhonchi. No dullness to percussion. No retractions or accessory muscle use. ABDOMEN: Positive bowel sounds x 4. Normal tympanic percussion. Soft, tender to palpation left upper quadrant and left lateral axillary line, without masses or organomegaly. Sibley sign negative. No guarding or rebound tenderness.no CVA tenderness MUSCULOSKELETAL: No muscle atrophy, erythema, or edema noted. NEURO: Patient was alert and oriented to person place and time. Normal sensation to light and sharp touch. No focal neurological deficits. Medical Decision & Procedures Laboratory Results 10/01/16 02:22 Red Blood Count 4.58, Mean Corpuscular Volume 88.2, Mean Corpuscular Hemoglobin 30.1, Mean Corpuscular Hemoglobin Concent 34.2, Mean Platelet Volume 9.6, Neutrophils (%) (Auto) 59.5, Lymphocytes (%) (Auto) 28.2, Monocytes (%) (Auto) 7.5, Eosinophils (%) (Auto) 4.0, Basophils (%) (Auto) 0.6, Neutrophils # (Auto) 6.79, Lymphocytes # (Auto) 3.22, Monocytes # (Auto) 0.86, Eosinophils # (Auto) 0.46, Basophils # (Auto) 0.07 10/01/16 02:22 Test 10/01/16 02:22 White Blood Count 11.42 K/uL (4.8-10.8) Red Blood Count 4.58 M/uL (4.2-5.4) Hemoglobin 13.8 g/dL (12.0-16.0) Hematocrit 40.4 % (37-47) Mean Corpuscular Volume 88.2 fL (80-100) Mean Corpuscular Hemoglobin 30.1 pg (25-34) Mean Corpuscular Hemoglobin Concent 34.2 g/dl (32-36) Platelet Count 351 K/uL (130-400) Mean Platelet Volume 9.6 fL (7.4-10.4) Neutrophils (%) (Auto) 59.5 % Lymphocytes (%) (Auto) 28.2 % Monocytes (%) (Auto) 7.5 % Eosinophils (%) (Auto) 4.0 % Basophils (%) (Auto) 0.6 % Neutrophils # (Auto) 6.79 K/uL (1.4-6.5) Lymphocytes # (Auto) 3.22 K/uL (1.2-3.4) Monocytes # (Auto) 0.86 K/uL (0.11-0.59) Eosinophils # (Auto) 0.46 K/uL (0-0.5) Basophils # (Auto) 0.07 K/uL (0-0.2) RDW Standard Deviation 42.5 fL (36.4-46.3) RDW Coefficient of Variation 13.2 % (11.5-14.5) Immature Granulocyte % (Auto) 0.2 % Immature Granulocyte # (Auto) 0.02 K/uL (0.00-0.02) Anion Gap 6.0 mmol/L (3-11) Est Creatinine Clear Calc Drug Dose 102.6 ml/min Estimated GFR () 117.5 Estimated GFR (Non- 101.3 BUN/Creatinine Ratio 16.8 (10-20) Calcium Level 8.6 mg/dl (8.5-10.1) Magnesium Level 2.3 mg/dl (1.8-2.4) Total Bilirubin 0.6 mg/dl (0.2-1) Direct Bilirubin 0.1 mg/dl (0-0.2) Aspartate Amino Transf (AST/SGOT) 4 U/L (15-37) Alanine Aminotransferase (ALT/SGPT) 16 U/L (12-78) Alkaline Phosphatase 35 U/L (45-117) Total Creatine Kinase 46 U/L (26-192) Creatine Kinase MB < 0.5 ng/ml (0.5-3.6) Creatine Kinase MB Ratio (0-3.0) Troponin I < 0.015 ng/ml (0-0.045) Total Protein 7.7 gm/dl (6.4-8.2) Albumin 4.0 gm/dl (3.4-5.0) Lipase 150 U/L (73-393) Human Chorionic Gonadotropin, Qual NEG (NEG) Medications Administered Medications (Trade) Dose Ordered Sig/Igor Route Start Time Stop Time Status Last Admin Dose Admin Lorazepam (Ativan Inj) 1 mg NOW STAT IV 10/01/16 02:13 10/01/16 02:14 DC 10/01/16 02:26 1 MG ED Course Prior records/ancillary studies reviewed. Triage Nursing notes reviewed. Additional history obtained from family The patient's history was concerning for abdominal pain. Differential diagnosis: Etiologies such as anxiety, appendicitis, diverticulitis, PUD, biliary pathology , UTI, pancreatitis, obstruction, mesenteric ischemia, aortic pathology, infections, inflammatory bowel disease, renal colic, as well as others were entertained. Physical examination findings: As above. ER treatment provided: Ativan On reassessment the patient felt better. Diagnostics interpreted by me: ECG: Normal sinus, normal intervals, no acute ST-T wave changes. Impression normal sinus rhythm interpreted by myself The labs revealed no worrisome electrolyte abnormality. Negative hCG Chronic mild leukocytosis per chart review unchanged Imaging studies: US OTHER - SPLEEN: Spleen appears normal and measures 10 cm in length. Radiologist: Zelda Ann M.D. CT OF THE ABDOMEN AND PELVIS WITHOUT CONTRAST CLINICAL HISTORY: Left flank pain. COMPARISON STUDY: CT of the abdomen and pelvis July or 2016. TECHNIQUE: Axial images of the abdomen and pelvis were obtained without IV contrast. Images were reviewed in the axial, sagittal, and coronal planes. A dose lowering technique was utilized adhering to the principles of ALARA. FINDINGS: No renal, ureteral or bladder calculi are identified. There is no hydronephrosis or hydroureter. Evaluation of the abdomen and pelvis is suboptimal on this unenhanced exam. The liver, spleen, adrenal glands and pancreas are unremarkable. There is no evidence for a bowel obstruction. The appendix is not visualized. An intrauterine device is appropriately positioned by CT. Note is made of a 2.6 cm hypodense lesion arising from the left ovary. There may be additional 2.7 cm intermediate attenuation left ovarian lesion. Skeletal structures are unremarkable. IMPRESSION: 1. No urinary calculi or hydronephrosis. 2. No acute process within the abdomen or pelvis on unenhanced exam. 3. Two left ovarian lesions. One lesion likely reflects a cyst/dominant follicle while the other lesion is intermediate attenuation. This may reflect a hemorrhagic cyst. A follow-up pelvic ultrasound in 6 weeks to ensure resolution is recommended. Electronically signed by: Raúl Love M.D. 09/12/2016 4:44 PM Dictated Date/Time: 09/12/2016 4:36 PM Exam and history seem consistent with left upper abdominal pain with unclear etiology. This could be muscle skeletal in nature or this could be anxiety. Patient felt much better after being medicated as above. She did not have acute abdomen on exam. She's had multiple CT scans in the past. She follows with OB with Dr. Thomas for her ovarian cysts. She had a colonoscopy that was negative. She is advised to follow-up family care in a few days or here in the ER sooner for abdominal pain, fevers, vomiting, worsening signs or symptoms or as needed.By the evaluation outlined above emergent etiologies such as appendicitis, diverticulitis, PUD, biliary pathology, UTI, pancreatitis, obstruction, mesenteric ischemia, aortic pathology, infections, inflammatory bowel disease, renal colic, as well as others were deemed relatively unlikely. The pt informed about the findings as listed above. All questions were answered and pleased with the treatment. Return instructions were outlined and the patient was discharged in stable condition. Referral: The patient was referred back to their primary care physician for follow-up in 2 to 3 days for a recheck of the current condition. Case reviewed with my attending. Medical Decision As above Medication Reconcilliation Current Medication List: was personally reviewed by me Blood Pressure Screening Patient's blood pressure: Normal blood pressure Impression Primary Impression: Left upper quadrant abdominal pain of unknown etiology Departure Information Dispostion Home / Self-Care Condition GOOD Referrals Rajan Hare M.D. ([facility]) (PCP) Patient Instructions My [facility] Additional Instructions DO NOT drive, drink alcohol, operate machinery, or perform dangerous activities today. You were given medications in the ER that can affect your ability to safely function or operate a vehicle. Ibuprofen(Motrin, Advil) may be used for fever or pain. Use 600mg every six hours as needed. Take with food. Avoid using more than 2400mg in a 24 hour period. Do not use 2400mg per day for more than three consecutive days without physician direction. Prolonged inappropriate use can lead to stomach upset or ulcers. (AND/OR) Acetaminophen(Tylenol) may be used for fever or pain. Use 1000mg every six hours as needed. Avoid using more than 3000mg in a 24 hour period. Rest and drink plenty of fluids as tolerated. Slow sips of water or sports drinks are recommended instead of large amounts all at once. Continue current medications. Once your stomach is settled start with a clear liquid diet (jello, soup broth, etc.) and then advance as tolerated. You should avoid full, heavy meals for about 24 hrs from the time your symptoms resolved. Return to the ER immediately for worsening or persistent abdominal pain, vomiting, fevers, chest pains, difficulty breathing, black or bloody stools, worsening of your condition, or as needed. Follow up with your primary physician in one to 2 days for a recheck of your current condition.
[2016-10-01 04:14] VITALS: BP 97/62; PULSE 72; O2SAT 99
--- NOTE | 2016-10-01 07:11 | DIAGNOSTIC IMAGING REPORT ---
CHEST ONE VIEW PORTABLE HISTORY: Atypical CHEST PAIN COMPARISON: Chest CT 02/20/2016. FINDINGS: The lungs are clear. Cardiac silhouette is normal in size. No pleural effusions. No pneumothorax. IMPRESSION: No acute process. Electronically signed by: Yamil Barros M.D. 10/01/2016 7:10 AM Dictated Date/Time: 10/01/2016 7:09 AM
--- NOTE | 2016-10-01 07:13 | DIAGNOSTIC IMAGING REPORT ---
ULTRASOUND OF THE SPLEEN CLINICAL HISTORY: Left upper quadrant abdominal pain. COMPARISON STUDY: Abdominal CT dated 09/12/2016. FINDINGS: Real-time, grayscale, and color flow sonography of the spleen is performed. The spleen is normal in size and homogeneous in echotexture measuring 10.0 cm in length. No splenic abnormality is identified. No perisplenic fluid is seen. The splenic vessels at the hilum are patent. Survey images of the left kidney show no abnormality. IMPRESSION: Unremarkable sonographic assessment of the spleen. Electronically signed by: Abdelrahman Mclain M.D. 10/01/2016 7:12 AM Dictated Date/Time: 10/01/2016 7:11 AM
== END 2016-10-01 04:26 | disposition home or self-care (01) ==
LOC: C.EDB 02:00
DX: R10.12 Left upper quadrant pain (principal); J45.909 Unspecified asthma, uncomplicated; G43.909 Migraine, unspecified, not intractable, without status migrainosus; K58.9 Irritable bowel syndrome, unspecified; Z87.01 Personal history of pneumonia (recurrent); Z80.9 Family history of malignant neoplasm, unspecified; Z83.3 Family history of diabetes mellitus; Z83.79 Family history of other diseases of the digestive system; Z82.49 Family history of ischemic heart disease and other diseases of the circulatory system; Z83.6 Family history of other diseases of the respiratory system; Z79.899 Other long term (current) drug therapy

== ENCOUNTER 2016-10-28 13:18 | Emergency (ER) | payer BC ==
[~2016-10-28] VITALS: Ht 162.6 cm; Wt 78.2 kg
[~2016-10-28 13:18] MED LIST changes: +ALBU18002 PO; -PROAIR INH; +ZLF/100 PO; -ZLF/50 PO
[2016-10-28 13:28] VITALS: TEMP 36.8; Ht 162.6 cm; Wt 78.2 kg
[2016-10-28 13:40] VITALS: O2SAT 99
[2016-10-28] MEDS ORDERED: SODIUM CHLORIDE 0.9% 1000ML 1,000 ML IV STA (13:42)
[2016-10-28 14:01] LABS: BASO % 0.6 %; BASO ABS # 0.07 K/uL (0-0.2); COMPLETE YES; EOS % 1.9 %; HEMATOCRIT 39.8 % (37-47); IG% 0.3 %; LYMPH % 22.2 %; LYMPH ABS # 2.64 K/uL (1.2-3.4); MEAN CELL VOLUME 86.9 fL (80-100); MEAN CORPUSCULAR HEMOGLOBIN 30.3 pg (25-34); MEAN CORPUSCULAR HGB CONC 34.9 g/dl (32-36); MEAN PLATELET VOLUME 9.5 fL (7.4-10.4); MONO % 4.4 %; NEUT % 70.6 %; PLATELET COUNT 356 K/uL (130-400); RED BLOOD COUNT 4.58 M/uL (4.2-5.4); WHITE BLOOD COUNT 11.89 K/uL (4.8-10.8)
--- NOTE | 2016-10-28 14:08 | DIAGNOSTIC IMAGING REPORT ---
CHEST ONE VIEW PORTABLE CLINICAL HISTORY: CHEST PAIN dyspnea COMPARISON STUDY: 10/01/2016 FINDINGS: The bones soft tissues and hemidiaphragms are normal. The cardiomediastinal silhouette is normal. The lungs are clear. The pulmonary vasculature is normal. IMPRESSION: Negative chest. The above report was generated using voice recognition software. It may contain grammatical, syntax or spelling errors. Electronically signed by: Lui Allan M.D. 10/28/2016 2:06 PM Dictated Date/Time: 10/28/2016 2:06 PM
--- NOTE | 2016-10-28 14:12 | EMERGENCY ROOM VISIT NOTE ---
History Report prepared by Kadeem: Jermain Ruiz Under the Supervision of: Dr. Ric Rausch M.D. First contact with patient: 13:32 Chief Complaint: PALPITATIONS Stated Complaint: HEART PALPITATIONS, SOB History of Present Illness The patient is a 40 year old female who presents to the Emergency Room with complaints of intermittent palpitations starting around 1100 this morning. She states that her chest feels weird, her heart will randomly speed up, and she feels shaky. She states that she thought that it was due not eating, though she ate lunch and it actually got worse. The patient states that she has anxiety issues. 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 The patient states that she took 2 puffs of her albuterol this morning. The patient denies any congestion, cough, fevers, chills, nausea, vomiting, urinary symptoms, and pain with inspiration. The patient states that there is no chance of , and her last menstrual cycle was a week ago. She denies any history of blood clots. The patient states that she has felt very fatigued recently, though she has been eating well and having no bowel problems. The patient has a family history of cancer but no thyroid or adrenal gland cancer, though her father had kidney cancer. Source of History: patient Onset: 1100 Position: other (heart) Quality: other (palpitations) Timing: intermittent Associated Symptoms: No fevers, No chills, No cough, No nausea, No urinary symptoms Note: Associated symptoms: Fatigue Review of Systems See HPI for pertinent positives and negatives. A total of ten systems were reviewed and were otherwise negative. Past Medical & Surgical Medical Problems: (1) Asthma (2) Bronchitis (3) Hx of migraines (4) IBS (irritable bowel syndrome) (5) Pneumonia Surgical Problems: (1) History of appendectomy (2) History of appendectomy (3) History of tonsillectomy (4) History of tonsillectomy Family History Cancer Diabetes mellitus Gallbladder disease Heart disease Hypertension Lung disease Social History Smoking Status: Never Smoker Alcohol Use: none Drug Use: none Marital Status: Housing Status: lives with family Occupation Status: employed Current/Historical Medications Scheduled Cyanocobalamin (Vitamin B-12 1000 Mcg), 1 TAB SL DAILY Loratadine (Claritin), 10 MG PO DAILY Multivitamin (Multivitamin), 1 TAB PO DAILY Sertraline HCl (Sertraline HCl), 100 MG PO DAILY [Richie], 1 TAB PO DAILY Scheduled PRN Albuterol Sulfate (Proair Respiclick), 2 PUFFS PO Q4 PRN for SOB/Wheezing Clonazepam (Klonopin), 0.5 MG PO TID PRN for Anxiety/Insomnia Epinephrine (Epipen), 0.3 MG IM UD PRN for ALLERGIC REACTION Triamcinolone Acetonide (Nasal (Nasacort Allergy 24Hr), 1 SPRAY KAMRAN DAILY PRN for Nasal Congestion Allergies Coded Allergies: Prednisone (Verified Adverse Reaction, Intermediate, HYPERTENSION, 10/28/16 ) Physical Exam Vital Signs Date Time Temp Pulse Resp B/P (MAP) Pulse Ox O2 Delivery O2 Flow Rate FiO2 10/28/16 15:28 72 16 123/80 97 10/28/16 15:12 66 20 104/65 97 Room Air 10/28/16 13:47 99 Room Air 10/28/16 13:40 79 10/28/16 13:40 99 Room Air 10/28/16 13:28 36.8 76 16 138/90 98 Room Air Physical Exam GENERAL: Awake, alert, anxious-appearing, in no distress HENT: Dry mucous membranes. Normocephalic, atraumatic. Oropharynx unremarkable. EYES: Normal conjunctiva. Sclera non-icteric. NECK: Supple. No nuchal rigidity. FROM. No JVD. RESPIRATORY: Clear to auscultation. CARDIAC: Regular rate, normal rhythm. Extremities warm and well perfused. Pulses equal. ABDOMEN: Soft, non-distended. No tenderness to palpation. No rebound or guarding. No masses. RECTAL: Deferred. MUSCULOSKELETAL: Chest examination reveals no tenderness. The back is symmetrical on inspection without obvious abnormality. There is no CVA tenderness to palpation. No joint edema. LOWER EXTREMITIES: Calves are equal size bilaterally and non-tender. No edema. No discoloration. NEURO: Normal sensorium. No sensory or motor deficits noted. SKIN: No rash or jaundice noted. Medical Decision & Procedures ER Provider Diagnostic Interpretation: Radiology results as stated below per my review and radiologist interpretation: CHEST ONE VIEW PORTABLE CLINICAL HISTORY: CHEST PAIN dyspnea COMPARISON STUDY: 10/01/2016 FINDINGS: The bones soft tissues and hemidiaphragms are normal. The cardiomediastinal silhouette is normal. The lungs are clear. The pulmonary vasculature is normal. IMPRESSION: Negative chest. The above report was generated using voice recognition software. It may contain grammatical, syntax or spelling errors. Electronically signed by: Lui Allan M.D. 10/28/2016 2:06 PM Dictated Date/Time: 10/28/2016 2:06 PM Laboratory Results 10/28/16 13:40 Red Blood Count 4.58, Mean Corpuscular Volume 86.9, Mean Corpuscular Hemoglobin 30.3, Mean Corpuscular Hemoglobin Concent 34.9, Mean Platelet Volume 9.5, Neutrophils (%) (Auto) 70.6, Lymphocytes (%) (Auto) 22.2, Monocytes (%) (Auto) 4.4, Eosinophils (%) (Auto) 1.9, Basophils (%) (Auto) 0.6, Neutrophils # (Auto) 8.41, Lymphocytes # (Auto) 2.64, Monocytes # (Auto) 0.52, Eosinophils # (Auto) 0.22, Basophils # (Auto) 0.07 10/28/16 13:40 Test 10/28/16 13:40 White Blood Count 11.89 K/uL (4.8-10.8) Red Blood Count 4.58 M/uL (4.2-5.4) Hemoglobin 13.9 g/dL (12.0-16.0) Hematocrit 39.8 % (37-47) Mean Corpuscular Volume 86.9 fL (80-100) Mean Corpuscular Hemoglobin 30.3 pg (25-34) Mean Corpuscular Hemoglobin Concent 34.9 g/dl (32-36) Platelet Count 356 K/uL (130-400) Mean Platelet Volume 9.5 fL (7.4-10.4) Neutrophils (%) (Auto) 70.6 % Lymphocytes (%) (Auto) 22.2 % Monocytes (%) (Auto) 4.4 % Eosinophils (%) (Auto) 1.9 % Basophils (%) (Auto) 0.6 % Neutrophils # (Auto) 8.41 K/uL (1.4-6.5) Lymphocytes # (Auto) 2.64 K/uL (1.2-3.4) Monocytes # (Auto) 0.52 K/uL (0.11-0.59) Eosinophils # (Auto) 0.22 K/uL (0-0.5) Basophils # (Auto) 0.07 K/uL (0-0.2) RDW Standard Deviation 41.7 fL (36.4-46.3) RDW Coefficient of Variation 13.0 % (11.5-14.5) Immature Granulocyte % (Auto) 0.3 % Immature Granulocyte # (Auto) 0.03 K/uL (0.00-0.02) Anion Gap 7.0 mmol/L (3-11) Est Creatinine Clear Calc Drug Dose 99.6 ml/min Estimated GFR () 113.7 Estimated GFR (Non- 98.1 BUN/Creatinine Ratio 21.1 (10-20) Calcium Level 8.8 mg/dl (8.5-10.1) Troponin I < 0.015 ng/ml (0-0.045) Thyroid Stimulating Hormone (TSH) 1.490 uIu/ml (0.300-4.500) Human Chorionic Gonadotropin, Qual NEG (NEG) Laboratory results reviewed by me Medications Administered Medications (Trade) Dose Ordered Sig/Igor Route Start Time Stop Time Status Last Admin Dose Admin Sodium Chloride 1,000 ml @ 999 mls/hr Q1H1M STAT IV 10/28/16 13:42 10/28/16 14:42 DC 10/28/16 14:00 999 MLS/HR ECG Indication: palpitations Rate (beats per minute): 71 Rhythm: normal sinus Findings: no acute ischemic change, other (normal axis) ED Course 1332: The patient was evaluated in room C12. A complete history and physical exam was performed. 1342: Sodium Chloride 1000 ml @ 999 mls/hr IV 1455: I reevaluated the patient, and she is feeling better. She is still a little jittery, but she is having no palpitations. Discussed results and discharge instructions: She verbalized understanding and agreement. The patient is ready for discharge. Medical Decision I reviewed the patient's past medical history, medications, and the nursing notes as described above. Differential diagnoses include: arrhythmia, dehydration, electrolyte abnormality , thyroid storm, ACS, pneumonia, bronchitis, and panic attack. The patient is a 40 y/o woman who presents to the ED with palpitations per HPI. On arrival the patient appears uncomfortable but in NAD. AFVSS. EKg unremarkable. Troponin negative in the setting of 3 hours of constant sx. BUN/ Cr > 20 c/w clinically dry appearance. Patient feeling improved with IVF. WBC mildly elevated at 11. CXR negative. Labs otherwise unremarkable.No ectopy on tele monitoring. Heart score 1, low risk. ACS not likely. PERC negative, thus PE not likely. Findings and plan for follow-up d/w patient. Patient agreeable and d/c'd per discharge instructions. Medication Reconcilliation Current Medication List: was personally reviewed by me Blood Pressure Screening Patient's blood pressure: Normal blood pressure Impression Primary Impression: Palpitations Scribe Attestation The scribe's documentation has been prepared under my direction and personally reviewed by me in its entirety. I confirm that the note above accurately reflects all work, treatment, procedures, and medical decision making performed by me. Departure Information Dispostion Home / Self-Care Referrals No Doctor, Assigned (PCP) Forms HOME CARE DOCUMENTATION FORM, IMPORTANT VISIT INFORMATION, WORK / SCHOOL INSTRUCTIONS Patient Instructions ED Palpitations, My [facility] Additional Instructions Please follow up with your primary care physician in the next 1-3 days for re- evaluation. Otherwise, your exam, EKG, chest xray and lab results did not show signs of an emergent condition at this time. Return to the emergency department for worsening symptoms as described in the accompanying instructions.
[2016-10-28 14:20] LABS: BLOOD UREA NITROGEN 16 mg/dl (7-18); BUN/CREATININE RATIO 21.1 (10-20); CALCIUM 8.8 mg/dl (8.5-10.1); CARBON DIOXIDE 27 mmol/L (21-32); CHLORIDE 104 mmol/L (98-107); CREATININE 0.76 mg/dl (0.60-1.20); GLUCOSE 134 mg/dl (70-99); POTASSIUM 3.4 mmol/L (3.5-5.1); SODIUM 138 mmol/L (136-145)
[2016-10-28 14:46] LABS: PREG INTERNAL NEGATIVE QC NEG CLEAR BACKGROUND; PREG INTERNAL POSITIVE QC POS CONTROL LINE
[2016-10-28 15:28] VITALS: BP 123/80; PULSE 72; O2SAT 97
== END 2016-10-28 15:26 | disposition home or self-care (01) ==
LOC: C.EDB 13:19 → C.EDC 15:26
DX: R00.2 Palpitations (principal); C73 Malignant neoplasm of thyroid gland; J45.909 Unspecified asthma, uncomplicated; G43.909 Migraine, unspecified, not intractable, without status migrainosus; K58.9 Irritable bowel syndrome, unspecified; Z87.01 Personal history of pneumonia (recurrent); Z80.9 Family history of malignant neoplasm, unspecified; Z83.3 Family history of diabetes mellitus; Z82.49 Family history of ischemic heart disease and other diseases of the circulatory system; Z83.6 Family history of other diseases of the respiratory system; Z79.899 Other long term (current) drug therapy

== ENCOUNTER 2017-01-03 14:55 | Emergency (ER) | payer BC ==
[~2017-01-03] VITALS: Ht 162.6 cm; Wt 77.8 kg
[2017-01-03 15:05] VITALS: TEMP 36.8; Ht 162.6 cm; Wt 77.8 kg
[2017-01-03] MEDS ORDERED: ONDANSETRON INJ 2 MG/ML 2 ML VIAL IV STA (15:37)
[2017-01-03] MEDS ORDERED: SODIUM CHLORIDE 0.9% 1000ML 1,000 ML IV STA (15:37)
[2017-01-03] MEDS ORDERED: KETOROLAC TROMETHAMINE 30 MG/ML VIAL IV STA (15:37)
[2017-01-03 15:58] LABS: BASO % 0.6 %; BASO ABS # 0.08 K/uL (0-0.2); COMPLETE YES; EOS % 2.1 %; HEMATOCRIT 40.5 % (37-47); IG% 0.2 %; LYMPH % 22.9 %; MEAN CELL VOLUME 87.3 fL (80-100); MEAN CORPUSCULAR HEMOGLOBIN 30.4 pg (25-34); MEAN CORPUSCULAR HGB CONC 34.8 g/dl (32-36); MEAN PLATELET VOLUME 9.5 fL (7.4-10.4); MONO % 4.2 %; PLATELET COUNT 371 K/uL (130-400); RED BLOOD COUNT 4.64 M/uL (4.2-5.4); WHITE BLOOD COUNT 13.51 K/uL (4.8-10.8)
[2017-01-03 16:08] LABS: URINE APPEARANCE CLEAR (CLEAR); URINE BILIRUBIN NEG (NEG); URINE COLOR YELLOW; URINE NITRITE NEG (NEG); URINE PH 6.5 (4.5-7.5); URINE SPECIFIC GRAVITY 1.019 (1.000-1.030); UROBILINOGEN NEG (NEG); ZZUR CULT IF INDIC CLEAN CATCH NO
[2017-01-03] MEDS ORDERED: FLUT0.15 NAE (16:08)
[2017-01-03 16:09] LABS: MANUAL MICROSCOPIC REQUIRED? NO; REVIEW REQ? NO
[2017-01-03 16:21] LABS: BUN/CREATININE RATIO 20.4 (10-20); CALCIUM 9.4 mg/dl (8.5-10.1); CREATININE 0.71 mg/dl (0.60-1.20); POTASSIUM 3.6 mmol/L (3.5-5.1)
[2017-01-03] MEDS ORDERED: MoRPHine SULFATE 4 MG/ML 1 ML CARP\\VIAL IV STA (17:01)
--- NOTE | 2017-01-03 17:33 | DIAGNOSTIC IMAGING REPORT ---
ABDOMEN AND PELVIS CT WITHOUT CONTRAST CT DOSE: 885.53 mGycm HISTORY: Left-sided abdominal pain. TECHNIQUE: Multiaxial CT images of the abdomen and pelvis were performed without the use of intravenous and oral contrast according to the standard department stone protocol. A dose lowering technique was utilized adhering to the principles of ALARA. COMPARISON STUDY: Abdomen and pelvis CT 09/12/2016. FINDINGS: The lung bases are clear. No pneumoperitoneum. No pneumatosis. No fractures within the visualized osseous structures. The unenhanced liver, gallbladder, spleen, adrenal glands, pancreas, and kidneys are unremarkable. No renal or ureteral calculi. No hydronephrosis. The bladder is unremarkable. An intrauterine device is in good position. There are a few left ovarian cysts with the largest measuring 2 cm. Suboptimal evaluation for bowel pathology due to the lack of intravenous and oral contrast. However, there is no definite bowel wall thickening or obstruction. The appendix appears to be surgically absent. IMPRESSION: 1. No bowel wall thickening or obstruction. 2. No renal or ureteral stones. No hydronephrosis. Electronically signed by: Yamil Barros M.D. 01/03/2017 5:31 PM Dictated Date/Time: 01/03/2017 5:23 PM
--- NOTE | 2017-01-03 18:46 | EMERGENCY ROOM VISIT NOTE ---
History Report prepared by Kadeem: Jermain Ruiz Under the Supervision of: Dr. Trever Davis D.O. First contact with patient: 15:32 Chief Complaint: ABDOMINAL PAIN Stated Complaint: L/U ABD- BACK PAIN, NAUSEA Nursing Triage Summary: Patient presents ambulatory to triage with c/o left upper abdominal pain States the pain was severe last night but resolved on its own Today she states that the pain has been steadily getting worse throughout the day LUQ pain that radiates into back and epigastric area Also c/o nausea without vomiting or diarrhea History of Present Illness The patient is a 41 year old female who presents to the Emergency Room with complaints of waxing and waning left upper quadrant abdominal pain that started last night, and it wraps around into her back. The patient states that she started having this pain last night, though it dissipated and came back again this morning. The patient notes that she has had gall bladder issues in the past. She denies any chest pain or shortness of breath. She notes that she had soup and a veggie quesadilla for lunch, and afterwards she started having this sharp pain. Source of History: patient Onset: last night Position: abdomen (LUQ) Quality: sharp Timing: waxes/wanes Associated Symptoms: No chest pain, No SOB Review of Systems See HPI for pertinent positives & negatives. A total of 10 systems reviewed and were otherwise negative. Past Medical & Surgical Medical Problems: (1) Asthma (2) Bronchitis (3) Hx of migraines (4) IBS (irritable bowel syndrome) (5) Pneumonia Surgical Problems: (1) History of appendectomy (2) History of appendectomy (3) History of tonsillectomy (4) History of tonsillectomy Family History Cancer Diabetes mellitus Gallbladder disease Heart disease Hypertension Lung disease Social History Smoking Status: Never Smoker Alcohol Use: none Drug Use: none Marital Status: Housing Status: lives with family Occupation Status: employed Current/Historical Medications Scheduled Cyanocobalamin (Vitamin B-12 1000 Mcg), 1 TAB SL DAILY Fluticasone Propionate (Nasal) (Flonase Allergy Relief), 2 SPRAYS KAMRAN DAILY Loratadine (Claritin), 10 MG PO DAILY Multivitamin (Multivitamin), 1 TAB PO DAILY Sertraline HCl (Sertraline HCl), 150 MG PO DAILY [Richie], 1 TAB PO DAILY Scheduled PRN Albuterol Sulfate (Proair Respiclick), 2 PUFFS PO Q4 PRN for SOB/Wheezing Clonazepam (Klonopin), 0.5 MG PO TID PRN for Anxiety/Insomnia Epinephrine (Epipen), 0.3 MG IM UD PRN for ALLERGIC REACTION Allergies Coded Allergies: Prednisone (Verified Adverse Reaction, Intermediate, HYPERTENSION, ) Physical Exam Vital Signs Date Time Temp Pulse Resp B/P (MAP) Pulse Ox O2 Delivery O2 Flow Rate FiO2 01/03/17 18:59 61 16 133/89 100 01/03/17 17:21 72 18 154/102 96 01/03/17 15:05 36.8 82 16 125/88 98 Room Air Physical Exam CONSTITUTIONAL/VITAL SIGNS: Reviewed / noted above. GENERAL: Non-toxic in appearance. INTEGUMENTARY: Warm, dry, and [place]. HEAD: Normocephalic. EYES: without scleral icterus or trauma. ENT/OROPHARYNX: clear and moist. LYMPHADENOPATHY/NECK: Is supple without lymphadenopathy or meningismus. RESPIRATORY: Lungs clear and equal. CARDIOVASCULAR: Regular rate and rhythm. GI/ABDOMEN: Soft and nontender. No organomegaly or pulsatile mass. No rebound or guarding. Normal bowel sounds. EXTREMITIES: Warm and well perfused. BACK: Mild left CVA tenderness. NEUROLOGICAL: Intact without focal deficits. PSYCHIATRIC: normal affect. MUSCULOSKELETAL: Normally developed with good muscle tone. Medical Decision & Procedures ER Provider Diagnostic Interpretation: Radiology results as stated below per my review and radiologist interpretation: ABDOMEN AND PELVIS CT WITHOUT CONTRAST CT DOSE: 885.53 mGycm HISTORY: Left-sided abdominal pain. TECHNIQUE: Multiaxial CT images of the abdomen and pelvis were performed without the use of intravenous and oral contrast according to the standard department stone protocol. A dose lowering technique was utilized adhering to the principles of ALARA. COMPARISON STUDY: Abdomen and pelvis CT 09/12/2016. FINDINGS: The lung bases are clear. No pneumoperitoneum. No pneumatosis. No fractures within the visualized osseous structures. The unenhanced liver, gallbladder, spleen, adrenal glands, pancreas, and kidneys are unremarkable. No renal or ureteral calculi. No hydronephrosis. The bladder is unremarkable. An intrauterine device is in good position. There are a few left ovarian cysts with the largest measuring 2 cm. Suboptimal evaluation for bowel pathology due to the lack of intravenous and oral contrast. However, there is no definite bowel wall thickening or obstruction. The appendix appears to be surgically absent. IMPRESSION: 1. No bowel wall thickening or obstruction. 2. No renal or ureteral stones. No hydronephrosis. Electronically signed by: Yamil Barros M.D. 01/03/2017 5:31 PM Dictated Date/Time: 01/03/2017 5:23 PM Laboratory Results 01/03/17 15:47 Red Blood Count 4.64, Mean Corpuscular Volume 87.3, Mean Corpuscular Hemoglobin 30.4, Mean Corpuscular Hemoglobin Concent 34.8, Mean Platelet Volume 9.5, Neutrophils (%) (Auto) 70.0, Lymphocytes (%) (Auto) 22.9, Monocytes (%) (Auto) 4.2, Eosinophils (%) (Auto) 2.1, Basophils (%) (Auto) 0.6, Neutrophils # (Auto) 9.45, Lymphocytes # (Auto) 3.10, Monocytes # (Auto) 0.57, Eosinophils # (Auto) 0.28, Basophils # (Auto) 0.08 01/03/17 15:47 Test 01/03/17 15:43 01/03/17 15:47 Urine Color YELLOW Urine Appearance CLEAR (CLEAR) Urine pH 6.5 (4.5-7.5) Urine Specific [place] 1.019 (1.000-1.030) Urine Protein NEG (NEG) Urine Glucose (UA) NEG (NEG) Urine Ketones NEG (NEG) Urine Occult Blood NEG (NEG) Urine Nitrite NEG (NEG) Urine Bilirubin NEG (NEG) Urine Urobilinogen NEG (NEG) Urine Leukocyte Esterase NEG (NEG) Urine WBC (Auto) 1-5 /hpf (0-5) Urine RBC (Auto) 0-4 /hpf (0-4) Urine Hyaline Casts (Auto) 1-5 /lpf (0-5) Urine Epithelial Cells (Auto) 5-10 /lpf (0-5) Urine Bacteria (Auto) NEG (NEG) Urine Test NEG (NEG) White Blood Count 13.51 K/uL (4.8-10.8) Red Blood Count 4.64 M/uL (4.2-5.4) Hemoglobin 14.1 g/dL (12.0-16.0) Hematocrit 40.5 % (37-47) Mean Corpuscular Volume 87.3 fL (80-100) Mean Corpuscular Hemoglobin 30.4 pg (25-34) Mean Corpuscular Hemoglobin Concent 34.8 g/dl (32-36) Platelet Count 371 K/uL (130-400) Mean Platelet Volume 9.5 fL (7.4-10.4) Neutrophils (%) (Auto) 70.0 % Lymphocytes (%) (Auto) 22.9 % Monocytes (%) (Auto) 4.2 % Eosinophils (%) (Auto) 2.1 % Basophils (%) (Auto) 0.6 % Neutrophils # (Auto) 9.45 K/uL (1.4-6.5) Lymphocytes # (Auto) 3.10 K/uL (1.2-3.4) Monocytes # (Auto) 0.57 K/uL (0.11-0.59) Eosinophils # (Auto) 0.28 K/uL (0-0.5) Basophils # (Auto) 0.08 K/uL (0-0.2) RDW Standard Deviation 42.4 fL (36.4-46.3) RDW Coefficient of Variation 13.3 % (11.5-14.5) Immature Granulocyte % (Auto) 0.2 % Immature Granulocyte # (Auto) 0.03 K/uL (0.00-0.02) Anion Gap 9.0 mmol/L (3-11) Est Creatinine Clear Calc Drug Dose 105.3 ml/min Estimated GFR () 122.6 Estimated GFR (Non- 105.8 BUN/Creatinine Ratio 20.4 (10-20) Calcium Level 9.4 mg/dl (8.5-10.1) Total Bilirubin 0.6 mg/dl (0.2-1) Direct Bilirubin 0.1 mg/dl (0-0.2) Aspartate Amino Transf (AST/SGOT) 8 U/L (15-37) Alanine Aminotransferase (ALT/SGPT) 15 U/L (12-78) Alkaline Phosphatase 41 U/L (45-117) Total Protein 8.5 gm/dl (6.4-8.2) Albumin 4.2 gm/dl (3.4-5.0) Lipase 149 U/L (73-393) Laboratory results as stated above per my review. Medications Administered Medications (Trade) Dose Ordered Sig/Igor Route Start Time Stop Time Status Last Admin Dose Admin Sodium Chloride 1,000 ml @ 999 mls/hr Q1H1M STAT IV 01/03/17 15:37 01/03/17 16:37 DC 01/03/17 15:37 999 MLS/HR Ondansetron HCl (Zofran Inj) 4 mg NOW STAT IV 01/03/17 15:37 01/03/17 15:39 DC 01/03/17 15:50 4 MG Ketorolac Tromethamine (Toradol Inj) 30 mg NOW STAT IV 01/03/17 15:37 01/03/17 15:39 DC 01/03/17 15:51 30 MG Morphine Sulfate (MoRPHine SULFATE INJ) 4 mg NOW STAT IV 01/03/17 17:01 01/03/17 17:03 DC 01/03/17 17:01 4 MG ECG Indication: abdominal pain Rate (beats per minute): 68 Rhythm: normal sinus Findings: no ectopy, other (Sinus arrhythmia. No injury) ED Course 1532: Previous medical records were reviewed. The patient was evaluated in room C3. A complete history and physical examination was performed. 1537: Toradol 30mg IV, Zofran 4mg IV, Sodium Chloride 1000 ml @ 999 mls/hr IV 1701: Morphine Sulfate 4mg IV 1850: On reevaluation, the patient is doing well. I discussed the results and findings with the patient. She verbalized agreement of the treatment plan. She was discharged home. Medical Decision Differential considered: pancreatitis, hepatitis, or acute cholecystitis, AAA, UTI, pyelonephritis, kidney stones, appendicitis, diverticulitis, shingles, bowel obstruction mesenteric ischemia, intussusception,hernia, ovarian torsion, ruptured ovarian cyst,ectopic , . This is a 41-year-old female who presents to the ED with a chief complaint of abdominal pain. Her pain is in the left upper quadrant and radiates into the back. She states that it started yesterday and then improved this morning and then came back tonight. It was a crampy pain comes and goes. She denies any fevers. No vomiting. Her symptoms are rather random. Her vital signs are normal. Her physical exam revealed some left CVA tenderness. CT scan of the abdomen and pelvis did not show acute process. Urine did not show infection. She is not . EKG shows a normal sinus rhythm. White blood cell count was 13.5. Lipase was normal, liver function tests were normal. The patient was told the results of the test. She is felt to be stable for discharge and outpatient follow-up. She was treated with IV Toradol, IV Zofran and IV morphine. Medication Reconcilliation Current Medication List: was personally reviewed by me Blood Pressure Screening Patient's blood pressure: Normal blood pressure Impression Primary Impression: LUQ abdominal pain Scribe Attestation The scribe's documentation has been prepared under my direction and personally reviewed by me in its entirety. I confirm that the note above accurately reflects all work, treatment, procedures, and medical decision making performed by me. Departure Information Dispostion Home / Self-Care Referrals Rajan Hare M.D.([facility]) (PCP) Forms Call Back Authorization, HOME CARE DOCUMENTATION FORM, IMPORTANT VISIT INFORMATION Patient Instructions Abdominal Pain, My [facility] Additional Instructions Follow-up with your doctor for further care and evaluation in 1-2 days. Return to the emergency department for worsening or new symptoms or any concerns. You have been examined and treated today on an emergency basis only. This is not a substitute for, or an effort to provide, complete comprehensive medical care. It is impossible to recognize and treat all injuries or illnesses in a single emergency department visit. It is therefore important that you follow up closely with your doctor. Call as soon as possible for an appointment. Your blood tests, urinalysis and CAT scan did not show a cause for your pain.
[2017-01-03 18:59] VITALS: BP 133/89; PULSE 61; O2SAT 100
== END 2017-01-03 19:01 | disposition home or self-care (01) ==
LOC: C.EDB 14:56 → C.EDC 19:01
DX: R10.12 Left upper quadrant pain (principal); J45.909 Unspecified asthma, uncomplicated; Z87.01 Personal history of pneumonia (recurrent); Z90.89 Acquired absence of other organs; Z83.3 Family history of diabetes mellitus; Z82.49 Family history of ischemic heart disease and other diseases of the circulatory system

== ENCOUNTER 2017-06-16 14:39 | Emergency (ER) | payer BC, OTHER ==
[~2017-06-16] VITALS: Ht 162.6 cm; Wt 79.9 kg
[~2017-06-16 14:39] MED LIST changes: +ALBU18002 INH; -ALBU18002 PO; -EPP3/2 IM; +FLUT0.15 NAE; -TRIA1SPR4 NAE
[2017-06-16 14:44] VITALS: TEMP 37.2; Ht 162.6 cm; Wt 79.9 kg
[2017-06-16] MEDS ORDERED: ONDANSETRON INJ 2 MG/ML 2 ML VIAL IV STA (14:53)
[2017-06-16] MEDS ORDERED: SODIUM CHLORIDE 0.9% 1000ML 2,000 ML IV STA (14:53)
[2017-06-16] MEDS ORDERED: FAMOTIDINE 20 MG TAB PO ONE (15:00)
--- NOTE | 2017-06-16 15:14 | EMERGENCY ROOM VISIT NOTE ---
History Report prepared by Kadeem: Jermain Ruiz Under the Supervision of: Dr. Ric Rausch M.D. First contact with patient: 14:50 Chief Complaint: VOMITING Stated Complaint: VOMITTING, DIARRHEA, ABDOMINAL CRAMPS, CAN'T KEEP History of Present Illness The patient is a 41 year old female who presents to the Emergency Room with complaints of persistent nausea and vomiting starting this morning around 0545 which is worsened with eating and drinking. The patient is additionally complaining of abdominal pain and diarrhea, and she states that she is not able to keep any food or water down. The patient notes that she has never had symptoms this severe. She notes that her daughter was sick over the weekend. The patient denies any cough, congestion, burning with urination, and hematuria. She states that yesterday she felt fine, and she notes that she last vomited around noon. The patient notes that she had her thyroid removed in December due to thyroid cancer. She states that she was unable to take her thyroid medication today since she could not keep her medications down. Source of History: patient Onset: 0545 this morning Position: other (global) Quality: other (nausea and vomiting) Timing: other (persistent) Modifying Factors (Worsening): eating, drinking Associated Symptoms: + abdominal pain, + diarrhea, No cough Review of Systems See HPI for pertinent positives and negatives. A total of ten systems were reviewed and were otherwise negative. Past Medical & Surgical Medical Problems: (1) Asthma (2) Bronchitis (3) Hx of migraines (4) IBS (irritable bowel syndrome) (5) Pneumonia Surgical Problems: (1) History of appendectomy (2) History of appendectomy (3) History of tonsillectomy (4) History of tonsillectomy Family History Cancer Diabetes mellitus Gallbladder disease Heart disease Hypertension Lung disease Social History Smoking Status: Never Smoker Alcohol Use: none Drug Use: none Marital Status: Housing Status: lives with family Occupation Status: employed Current/Historical Medications Scheduled Cyanocobalamin (Vitamin B-12), 2,500 MCG SL DAILY Levothyroxine Sodium (Levothyroxine Sodium), 125 MCG PO DAILY Loratadine (Claritin), 10 MG PO DAILY Ondasetron Odt (Zofran Odt), 4 MG SL Q6H [Vitamin D & K Drops], 1 DROP UT DAILY Scheduled PRN Albuterol Sulfate (Proair Respiclick), 2 PUFFS INH Q4H PRN for SOB/Wheezing Epinephrine (Epipen), 0.3 MG IM UD PRN for ALLERGIC REACTION Famotidine (Pepcid), 20 MG PO BID PRN for GI Upset Triamcinolone Acetonide (Nasal (Nasacort Allergy 24Hr), 2 SPRAYS KAMRAN UD PRN for Allergy Symptoms Allergies Coded Allergies: Prednisone (Verified Adverse Reaction, Intermediate, HYPERTENSION, ) Physical Exam Vital Signs Date Time Temp Pulse Resp B/P (MAP) Pulse Ox O2 Delivery O2 Flow Rate FiO2 06/16/17 17:09 82 18 119/79 98 06/16/17 16:33 80 18 129/80 98 Room Air 06/16/17 14:44 37.2 100 18 122/73 97 Room Air Physical Exam GENERAL: Awake, alert, fatigued and uncomfortable-appearing, in no distress HENT: Normocephalic, atraumatic. Dry mucous membranes otherwise oropharynx unremarkable. EYES: Normal conjunctiva. Sclera non-icteric. NECK: Supple. No nuchal rigidity. FROM. No JVD. RESPIRATORY: Clear to auscultation. CARDIAC: Regular rate, normal rhythm. Extremities warm and well perfused. Pulses equal. ABDOMEN: Mild epigastric discomfort no discrete tenderness. Soft, non- distended. No rebound or guarding. No masses. RECTAL: Deferred. MUSCULOSKELETAL: Chest examination reveals no tenderness. The back is symmetrical on inspection without obvious abnormality. There is no CVA tenderness to palpation. No joint edema. LOWER EXTREMITIES: Calves are equal size bilaterally and non-tender. No edema. No discoloration. NEURO: Normal sensorium. No sensory or motor deficits noted. SKIN: No rash or jaundice noted. Medical Decision & Procedures Laboratory Results 06/16/17 15:05 Red Blood Count 4.44, Mean Corpuscular Volume 86.0, Mean Corpuscular Hemoglobin 30.6, Mean Corpuscular Hemoglobin Concent 35.6, Mean Platelet Volume 9.3, Neutrophils (%) (Auto) 84.1, Lymphocytes (%) (Auto) 8.0, Monocytes (%) (Auto) 5.6, Eosinophils (%) (Auto) 1.8, Basophils (%) (Auto) 0.2, Neutrophils # (Auto) 10.08, Lymphocytes # (Auto) 0.96, Monocytes # (Auto) 0.67, Eosinophils # (Auto) 0.21, Basophils # (Auto) 0.02 06/16/17 15:05 Test 06/16/17 15:05 White Blood Count 11.97 K/uL (4.8-10.8) Red Blood Count 4.44 M/uL (4.2-5.4) Hemoglobin 13.6 g/dL (12.0-16.0) Hematocrit 38.2 % (37-47) Mean Corpuscular Volume 86.0 fL (80-100) Mean Corpuscular Hemoglobin 30.6 pg (25-34) Mean Corpuscular Hemoglobin Concent 35.6 g/dl (32-36) Platelet Count 319 K/uL (130-400) Mean Platelet Volume 9.3 fL (7.4-10.4) Neutrophils (%) (Auto) 84.1 % Lymphocytes (%) (Auto) 8.0 % Monocytes (%) (Auto) 5.6 % Eosinophils (%) (Auto) 1.8 % Basophils (%) (Auto) 0.2 % Neutrophils # (Auto) 10.08 K/uL (1.4-6.5) Lymphocytes # (Auto) 0.96 K/uL (1.2-3.4) Monocytes # (Auto) 0.67 K/uL (0.11-0.59) Eosinophils # (Auto) 0.21 K/uL (0-0.5) Basophils # (Auto) 0.02 K/uL (0-0.2) RDW Standard Deviation 42.3 fL (36.4-46.3) RDW Coefficient of Variation 13.4 % (11.5-14.5) Immature Granulocyte % (Auto) 0.3 % Immature Granulocyte # (Auto) 0.03 K/uL (0.00-0.02) Anion Gap 6.0 mmol/L (3-11) Est Creatinine Clear Calc Drug Dose 116.5 ml/min Estimated GFR () 127.8 Estimated GFR (Non- 110.3 BUN/Creatinine Ratio 14.4 (10-20) Calcium Level 7.4 mg/dl (8.5-10.1) Total Bilirubin 1.0 mg/dl (0.2-1) Direct Bilirubin 0.1 mg/dl (0-0.2) Aspartate Amino Transf (AST/SGOT) 7 U/L (15-37) Alanine Aminotransferase (ALT/SGPT) 14 U/L (12-78) Alkaline Phosphatase 36 U/L (45-117) Total Protein 7.3 gm/dl (6.4-8.2) Albumin 3.6 gm/dl (3.4-5.0) Lipase 101 U/L (73-393) Laboratory results reviewed by me Medications Administered Medications (Trade) Dose Ordered Sig/Igor Route Start Time Stop Time Status Last Admin Dose Admin Sodium Chloride 2,000 ml @ 999 mls/hr Q2H1M STAT IV 06/16/17 14:53 06/16/17 16:53 DC 06/16/17 15:40 999 MLS/HR Ondansetron HCl (Zofran Inj) 4 mg NOW STAT IV 06/16/17 14:53 06/16/17 14:55 DC 06/16/17 15:40 4 MG Famotidine (Pepcid Tab) 20 mg NOW ONCE PO 06/16/17 15:00 06/16/17 15:01 DC 06/16/17 15:41 20 MG ED Course 1450: The patient was evaluated in room B8. A complete history and physical exam was performed. 1640: I reevaluated the patient, and she was doing well. Discussed results and discharge instructions: she verbalized understanding and agreement. The patient is ready for discharge. Medical Decision I reviewed the patient's past medical history, medications, and the nursing notes as described above. Differential diagnosis: Etiologies such as gastroenteritis, food borne illness, infections, appendicitis , diverticulitis, inflammatory bowel disease, obstruction, GI bleed, biliary pathology, as well as others were entertained. The patient is a 41-year-old woman who presents emergency department with nausea vomiting and diarrhea per hpi. On arrival the patient is fatigued appearing and uncomfortable but no acute distress, afebrile with heart rate in the 100s but otherwise vital signs stable. On exam the patient has mild epigastric discomfort but no discrete tenderness. WBC 11, nonspecific. Labs otherwise unremarkable. The patient was feeling improved after IV fluids, Zofran, Pepcid. Heart rate improved to the 80s. Symptoms most consistent with likely viral gastroenteritis. Given the patient's improvement and otherwise benign abdomen no indication for imaging at this time. Plan for PCP follow-up. Findings and plan for follow-up reviewed with patient. Patient agreeable and d/c 'd per discharge instructions. Medication Reconcilliation Current Medication List: was personally reviewed by me Blood Pressure Screening Patient's blood pressure: Normal blood pressure Impression Primary Impression: Gastroenteritis Scribe Attestation The scribe's documentation has been prepared under my direction and personally reviewed by me in its entirety. I confirm that the note above accurately reflects all work, treatment, procedures, and medical decision making performed by me. Departure Information Dispostion Home / Self-Care Prescriptions Famotidine (PEPCID) 20 Mg Tab 20 MG PO BID Y for GI Upset for 10 Days, #20 TAB Prov: Ric Rausch M.D. 06/16/17 Ondasetron Odt (ZOFRAN ODT) 4 Mg Tab 4 MG SL Q6H for Nausea, #10 TAB Prov: Ric Rausch M.D. 06/16/17 Referrals Rajan Hare M.D. ([facility]) (PCP) Forms HOME CARE DOCUMENTATION FORM, IMPORTANT VISIT INFORMATION Patient Instructions ED Gastroenteritis Viral, My [facility] Additional Instructions Please follow up with your primary care physician in the next 1-3 days for re- evaluation. You likely have a viral GI illness. Otherwise, your exam and lab results did not show signs of an emergent condition at this time. Acetaminophen or ibuprofen for pain and fevers as needed. Zofran as needed for nausea. Pepcid as needed for GI upset/acid reduction. Drink plenty of fluids to ensure hydration. Return to the emergency department for worsening symptoms as described in the accompanying instructions.
[2017-06-16 15:15] LABS: BASO % 0.2 %; BASO ABS # 0.02 K/uL (0-0.2); EOS % 1.8 %; EOS ABS # 0.21 K/uL (0-0.5); HEMATOCRIT 38.2 % (37-47); HEMOGLOBIN 13.6 g/dL (12.0-16.0); IG# 0.03 K/uL (0.00-0.02); LYMPH ABS # 0.96 K/uL (1.2-3.4); MEAN CORPUSCULAR HEMOGLOBIN 30.6 pg (25-34); MEAN CORPUSCULAR HGB CONC 35.6 g/dl (32-36); MEAN PLATELET VOLUME 9.3 fL (7.4-10.4); MONO % 5.6 %; MONO ABS # 0.67 K/uL (0.11-0.59); NEUT % 84.1 %; NEUT ABS # 10.08 K/uL (1.4-6.5); PLATELET COUNT 319 K/uL (130-400); RED CELL DISTRIBUTION WIDTH CV 13.4 % (11.5-14.5); RED CELL DISTRIBUTION WIDTH SD 42.3 fL (36.4-46.3); WHITE BLOOD COUNT 11.97 K/uL (4.8-10.8)
[2017-06-16 15:35] LABS: ALBUMIN 3.6 gm/dl (3.4-5.0); CALCIUM 7.4 mg/dl (8.5-10.1); CREATININE 0.65 mg/dl (0.60-1.20); POTASSIUM 3.9 mmol/L (3.5-5.1)
[2017-06-16 15:38] LABS: TOTAL PROTEIN 7.3 gm/dl (6.4-8.2)
[2017-06-16] MEDS ORDERED: CYAN1SUB12 SL (16:13)
[2017-06-16] MEDS ORDERED: CLR10 PO (16:13)
[2017-06-16] MEDS ORDERED: [UNRECOGNIZED DRUG - OTHER] UT (16:13)
[2017-06-16] MEDS ORDERED: TRIA1SPR4 NAE (16:13)
[2017-06-16] MEDS ORDERED: LEVO125T5 PO (16:13)
[2017-06-16] MEDS ORDERED: VITAMIN D UT (16:13)
[2017-06-16] MEDS ORDERED: ONDA4TAB10 SL (16:26)
[2017-06-16] MEDS ORDERED: FAMO20TA9 PO (16:26)
[2017-06-16 17:09] VITALS: BP 119/79; PULSE 82; O2SAT 98
[2017-06-16] MEDS ORDERED: EPP3/2 IM (17:20)
== END 2017-06-16 17:10 | disposition home or self-care (01) ==
LOC: C.EDB 14:40
DX: K52.9 Noninfective gastroenteritis and colitis, unspecified (principal); E89.0 Postprocedural hypothyroidism; Z85.850 Personal history of malignant neoplasm of thyroid; J45.909 Unspecified asthma, uncomplicated; Z79.899 Other long term (current) drug therapy; Z88.8 Allergy status to other drugs, medicaments and biological substances; Z87.01 Personal history of pneumonia (recurrent); Z80.9 Family history of malignant neoplasm, unspecified; Z83.3 Family history of diabetes mellitus; Z82.49 Family history of ischemic heart disease and other diseases of the circulatory system

== ENCOUNTER 2017-09-20 03:45 | Emergency (ER) | payer OTHER ==
[~2017-09-20] VITALS: Ht 162.6 cm; Wt 80.0 kg
[~2017-09-20 03:45] MED LIST changes: -CLON0.5T3 PO; -CYAN10004 SL; +CYAN1SUB12 SL; +EPP3/2 IM; -FLUT0.15 NAE; -GABA PO; +LEVO125T5 PO; -MULT-506 PO; +ONDA4TAB10 SL; +TRIA1SPR4 NAE; +VITAMIN D UT; -ZLF/100 PO; +[UNRECOGNIZED DRUG - OTHER] UT
[2017-09-20 03:49] VITALS: TEMP 36.7; Ht 162.6 cm; Wt 80.0 kg
[2017-09-20 03:57] VITALS: O2SAT 98
[2017-09-20] MEDS ORDERED: SODIUM CHLORIDE 0.9% 1000ML 1,000 ML IV STA (04:00)
--- NOTE | 2017-09-20 04:04 | EMERGENCY ROOM VISIT NOTE ---
History Report prepared by Kadeem: Nirali Santana Under the Supervision of: Dr. Ziyad Perez M.D. 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 She states she woke up in the middle of the night having a panic attack and has felt chest pain and right arm numbness since. She has a family history of blood clots and strokes but does not personally have a history. She denies any back pain, urinary symptoms, history of heart problems, history of blood clots, or recent travel. She had papillary thyroid cancer and had surgery in April. 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 Negative personal history of heart problems, history of blood clots, or recent travel Review of Systems See HPI for pertinent positives & negatives. A total of 10 systems reviewed and were otherwise negative. Past Medical & Surgical Medical Problems: (1) Asthma (2) Bronchitis (3) Hx of migraines (4) IBS (irritable bowel syndrome) (5) Pneumonia Surgical Problems: (1) History of appendectomy (2) History of appendectomy (3) History of tonsillectomy (4) History of tonsillectomy Family History Cancer Diabetes mellitus Gallbladder disease Heart disease Hypertension Lung disease Social History Smoking Status: Never Smoker Alcohol Use: none Drug Use: none Marital Status: Housing Status: lives with family Occupation Status: employed Current/Historical Medications Scheduled Cetirizine (Zyrtec), 10 MG PO DAILY Cyanocobalamin (Vitamin B-12), 2,500 MCG SL DAILY Levothyroxine Sodium (Levothyroxine Sodium), 125 MCG PO DAILY [Vitamin D & K Drops], 1 DROP UT DAILY Scheduled PRN Albuterol Sulfate (Proair Respiclick), 2 PUFFS INH Q4H PRN for SOB/Wheezing Clonazepam (Klonopin), 0.5 MG PO BID PRN for Anxiety Epinephrine (Epipen), 0.3 MG IM UD PRN for ALLERGIC REACTION Triamcinolone Acetonide (Nasal (Nasacort Allergy 24Hr), 2 SPRAYS KAMRAN UD PRN for Allergy Symptoms [Unknown Prn Ibs Med], 1 TAB PO TID PRN for IBS FLARE Allergies Coded Allergies: Prednisone (Verified Adverse Reaction, Intermediate, HYPERTENSION, ) Physical Exam Vital Signs Date Time Temp Pulse Resp B/P (MAP) Pulse Ox O2 Delivery O2 Flow Rate FiO2 09/20/17 05:20 69 20 136/98 99 09/20/17 04:01 76 09/20/17 03:57 98 Room Air 09/20/17 03:56 Room Air 09/20/17 03:49 36.7 87 22 158/113 98 Room Air Physical Exam GENERAL: Patient is anxious appearing and in mild distress. EYES: No scleral icterus, unremarkable pupils. ENT: Mucous membranes moist, no nasal congestion. NECK: No masses appreciated, no meningismus, trachea is midline. RESPIRATORY: No dyspnea. Clear to auscultation and equal bilaterally. No wheeze , no rhonchi. CARDIOVASCULAR: Regular rate and rhythm. No murmurs, rubs, gallops appreciated. GASTROINTESTINAL: Abdomen soft, nontender, no peritonitis. Bowel sounds positive. No masses appreciated. BACK: No midline tenderness, no CVA tenderness EXTREMITIES: Normal motion all extremities, no cyanosis, no edema. NEUROLOGIC: Alert and oriented, no acute motor or sensory deficits, no focal weakness, cranial nerves grossly intact. SKIN: No rash, no jaundice, no diaphoresis. Medical Decision & Procedures ER Provider Diagnostic Interpretation: X ray results are stated below per my interpretation: Chest: 1 view: No infiltrate, no effusion, normal cardiac border. Compared to 10/2016, there is no change. Laboratory Results 09/20/17 04:00 Red Blood Count 4.61, Mean Corpuscular Volume 85.2, Mean Corpuscular Hemoglobin 29.5, Mean Corpuscular Hemoglobin Concent 34.6, Mean Platelet Volume 9.4, Neutrophils (%) (Auto) 54.0, Lymphocytes (%) (Auto) 35.1, Monocytes (%) (Auto) 6.0, Eosinophils (%) (Auto) 4.3, Basophils (%) (Auto) 0.4, Neutrophils # (Auto) 4.99, Lymphocytes # (Auto) 3.25, Monocytes # (Auto) 0.56, Eosinophils # (Auto) 0.40, Basophils # (Auto) 0.04 09/20/17 04:00 Test 09/20/17 04:00 White Blood Count 9.26 K/uL (4.8-10.8) Red Blood Count 4.61 M/uL (4.2-5.4) Hemoglobin 13.6 g/dL (12.0-16.0) Hematocrit 39.3 % (37-47) Mean Corpuscular Volume 85.2 fL (80-100) Mean Corpuscular Hemoglobin 29.5 pg (25-34) Mean Corpuscular Hemoglobin Concent 34.6 g/dl (32-36) Platelet Count 298 K/uL (130-400) Mean Platelet Volume 9.4 fL (7.4-10.4) Neutrophils (%) (Auto) 54.0 % Lymphocytes (%) (Auto) 35.1 % Monocytes (%) (Auto) 6.0 % Eosinophils (%) (Auto) 4.3 % Basophils (%) (Auto) 0.4 % Neutrophils # (Auto) 4.99 K/uL (1.4-6.5) Lymphocytes # (Auto) 3.25 K/uL (1.2-3.4) Monocytes # (Auto) 0.56 K/uL (0.11-0.59) Eosinophils # (Auto) 0.40 K/uL (0-0.5) Basophils # (Auto) 0.04 K/uL (0-0.2) RDW Standard Deviation 41.2 fL (36.4-46.3) RDW Coefficient of Variation 13.3 % (11.5-14.5) Immature Granulocyte % (Auto) 0.2 % Immature Granulocyte # (Auto) 0.02 K/uL (0.00-0.02) D-Dimer 290 ug/L FEU (0-500) Anion Gap 8.0 mmol/L (3-11) Est Creatinine Clear Calc Drug Dose 113.1 ml/min Estimated GFR () 126.5 Estimated GFR (Non- 109.2 BUN/Creatinine Ratio 19.4 (10-20) Calcium Level 8.2 mg/dl (8.5-10.1) Troponin I < 0.015 ng/ml (0-0.045) Laboratory results as reviewed by me. Medications Administered Medications (Trade) Dose Ordered Sig/Igor Route Start Time Stop Time Status Last Admin Dose Admin Sodium Chloride 1,000 ml @ 999 mls/hr Q1H1M STAT IV 09/20/17 04:00 09/20/17 05:00 DC 09/20/17 04:00 999 MLS/HR ECG Per My Interpretation Indication: chest pain Rate (beats per minute): 80 Rhythm: normal sinus Findings: no acute ischemic change, no ectopy, other (QTC of 456 ) Comparison ECG Date: 10/2016 Change: When compared to EKG from 10/2016, morphology is similar ED Course 0355: The patient was evaluated in room A12. A complete history and physical exam was performed. 0400: Ordered Sodium Chloride 1000 ml @ 999 mls/hr IV 0505: Reevaluated the patient. She notes she is feeling much better. She is very much under the impression this is anxiety related. She would like to go home. She will follow up with her PCP for thyroid testing and is aware that not all testing was completed at time of discharge. Discussed results and discharge instructions: She verbalized understanding and agreement. The patient is ready for discharge. Medical Decision Differential: Cardiac Ischemia (STEMI, NSTEMI, Unstable Angina, etc), Aortic Dissection, Arrhythmia, Pulmonary Embolism, Pneumonia, Pneumothorax, MSK, Infectious, Pericarditis/Myocarditis, Esophageal Rupture, Gastrointestinal, amongst other pathologies entertained. 41 yr old female with right chest pain and right arm paresthesia. EKG unremarkable and unchanges, CXR clear and dimer negative. She is calming down and feeling much better. Admits history of anxiety. Also with recent UTI which may have worsened symptoms. She has recent thyroid surgery earlier in the year and is on Levoxyl and monitored closely by endo. She has no tachy, no palpitations. Could be exacerbating her anxiety but she is looking quite well now. Labs unremarkable. No evidence this is ACS, PE, Dissection. No infectious findings. 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 She feels comfortable going home. Aware she can return at any time if worsening or other concerns. Stable and looks well at discharge. Medication Reconcilliation Current Medication List: was personally reviewed by me Impression Primary Impression: Right-sided chest pain Additional Impression: Arm paresthesia, right Scribe Attestation The scribe's documentation has been prepared under my direction and personally reviewed by me in its entirety. I confirm that the note above accurately reflects all work, treatment, procedures, and medical decision making performed by me. Departure Information Dispostion Home / Self-Care Referrals Rajan Hare M.D.(MARTÍN) (PCP) Forms Call Back Authorization, HOME CARE DOCUMENTATION FORM, IMPORTANT VISIT INFORMATION Patient Instructions My [facility] Additional Instructions Return immediately if return of chest pain, shortness of breath, passing out, palpitations or other concerns. We are always here to help! Please discuss further testing with your primary care provider. You have been examined and treated today on an emergency basis only. This is not a substitute for, or an effort to provide, complete comprehensive medical care. It is impossible to recognize and treat all injuries or illnesses in a single emergency department visit. It is therefore important that you follow up closely with your Primary Physician. Call as soon as possible for an appointment so you can review all labs, imaging and other testing that you had. Return to Emergency Department, call 911 or seek immediate medical attention if you feel your symptoms are worsening. Problem Qualifiers
[2017-09-20 04:21] LABS: BASO % 0.4 %; BASO ABS # 0.04 K/uL (0-0.2); EOS % 4.3 %; HEMATOCRIT 39.3 % (37-47); HEMOGLOBIN 13.6 g/dL (12.0-16.0); IG# 0.02 K/uL (0.00-0.02); LYMPH % 35.1 %; LYMPH ABS # 3.25 K/uL (1.2-3.4); MEAN CELL VOLUME 85.2 fL (80-100); MEAN CORPUSCULAR HEMOGLOBIN 29.5 pg (25-34); MEAN CORPUSCULAR HGB CONC 34.6 g/dl (32-36); MEAN PLATELET VOLUME 9.4 fL (7.4-10.4); MONO ABS # 0.56 K/uL (0.11-0.59); NEUT ABS # 4.99 K/uL (1.4-6.5); PLATELET COUNT 298 K/uL (130-400); RED CELL DISTRIBUTION WIDTH CV 13.3 % (11.5-14.5); RED CELL DISTRIBUTION WIDTH SD 41.2 fL (36.4-46.3); WHITE BLOOD COUNT 9.26 K/uL (4.8-10.8)
[2017-09-20] MEDS ORDERED: CETI10TA84 PO (04:52)
[2017-09-20] MEDS ORDERED: KLN/5 PO (04:55)
[2017-09-20] MEDS ORDERED: [UNRECOGNIZED DRUG - REMARK] PO ×2 (04:59→05:01)
[2017-09-20 05:20] VITALS: BP 136/98; PULSE 69; O2SAT 99
[2017-09-20 05:38] LABS: BLOOD UREA NITROGEN 13 mg/dl (7-18); CALCIUM 8.2 mg/dl (8.5-10.1); CARBON DIOXIDE 25 mmol/L (21-32); CREATININE 0.67 mg/dl (0.60-1.20); GLUCOSE 97 mg/dl (70-99); POTASSIUM 3.5 mmol/L (3.5-5.1); SODIUM 138 mmol/L (136-145)
--- NOTE | 2017-09-20 08:15 | DIAGNOSTIC IMAGING REPORT ---
SINGLE VIEW CHEST CLINICAL HISTORY: Atypical chest pain. FINDINGS: An AP, portable, upright chest radiograph is compared to study dated 10/28/2016. The examination is mildly degraded by portable technique and patient rotation. The cardiomediastinal silhouette is unremarkable. The lungs and pleural spaces are clear. No pneumothorax is seen. The bony thorax is grossly intact. IMPRESSION: No active disease in the chest. Electronically signed by: Abdelrahman Mclain M.D. 09/20/2017 8:14 AM Dictated Date/Time: 09/20/2017 8:13 AM
== END 2017-09-20 05:21 | disposition home or self-care (01) ==
LOC: C.EDB 03:46 → C.EDA 05:21
DX: R07.9 Chest pain, unspecified (principal); R20.2 Paresthesia of skin; F41.9 Anxiety disorder, unspecified; Z82.3 Family history of stroke; Z85.850 Personal history of malignant neoplasm of thyroid; J45.909 Unspecified asthma, uncomplicated; K58.9 Irritable bowel syndrome, unspecified; Z87.01 Personal history of pneumonia (recurrent); Z90.49 Acquired absence of other specified parts of digestive tract; Z80.9 Family history of malignant neoplasm, unspecified; Z83.3 Family history of diabetes mellitus; Z82.49 Family history of ischemic heart disease and other diseases of the circulatory system; Z79.899 Other long term (current) drug therapy; Z88.8 Allergy status to other drugs, medicaments and biological substances

== ENCOUNTER 2019-03-28 10:37 | Observation (INO) ==
[2019-03-28] MEDS ORDERED: ONDANSETRON INJ 2 MG/ML 2 ML VIAL IV STA (10:46)
[2019-03-28] MEDS ORDERED: KETOROLAC TROMETHAMINE 15 MG/ML VIAL IV STA (10:46)
[2019-03-28] MEDS ORDERED: ACETAMINOPHEN 1,000 MG/100 ML VIAL IV STA (10:46)
[2019-03-28] MEDS ORDERED: SODIUM CHLORIDE 0.9% 1000ML 2,000 ML IV ONE (10:46)
[2019-03-28] MEDS ORDERED: PROMETHAZINE HCL 6.25 MG in SODIUM CHLORIDE 0.9% 50 ML IV STA (10:46)
[2019-03-28 11:14] LABS: Basophils # (auto) 0.03 K/uL (0-0.2); Basophils % (auto) 0.2 %; Eosinophils # (auto) 0.18 K/uL (0-0.5); Eosinophils % (auto) 1.3 %; Hematocrit (blood only) 42.9 % (37-47); Hemoglobin 14.9 g/dL (12.0-16.0); Immature Granulocytes # (auto) 0.03 K/uL (0.00-0.02); Immature Granulocytes % (auto) 0.2 %; Lymphocytes # (auto) 1.06 K/uL (1.2-3.4); Lymphocytes % (auto) 7.9 %; Mean Corpuscular Hemoglobin 30.5 pg (25-34); Mean Corpuscular Hgb Conc 34.7 g/dL (32-36); Mean Corpuscular Volume 87.9 fL (80-100); Mean Platelet Volume 9.7 fL (7.4-10.4); Monocytes # (auto) 0.45 K/uL (0.11-0.59); Monocytes % (auto) 3.3 %; Neutrophils # (auto) 11.69 K/uL (1.4-6.5); Neutrophils % (auto) 87.1 %; Platelet Count 353 K/uL (130-400); RDW Coefficient of Variation 13.1 % (11.5-14.5); RDW Standard Deviation 42.2 fL (36.4-46.3); Red Blood Count 4.88 M/uL (4.2-5.4); White Blood Count 13.44 K/uL (4.8-10.8)
[2019-03-28 11:31] LABS: Alanine Aminotransferase 16 U/L (12-78); Albumin Level 4.2 gm/dl (3.4-5.0); Aspartate Aminotransferase 5 U/L (15-37); BUN Creatinine Ratio 21.3 (10-20); Blood Urea Nitrogen 19 mg/dl (7-18); Calcium 8.2 mg/dl (8.5-10.1); Carbon Dioxide 20 mmol/L (21-32); Chloride 107 mmol/L (98-107); Creatinine Clr Calc Pharmacy 84.8 ml/min; Est GFR (African American) 93.3; Est GFR (Non-African American) 80.5; Glucose 107 mg/dl (70-99); Lipase 93 U/L (73-393); Magnesium 2.2 mg/dl (1.8-2.4); Potassium 4.2 mmol/L (3.5-5.1); Sodium 138 mmol/L (136-145)
[2019-03-28 11:36] LABS: Alkaline Phosphatase 37 U/L (45-117); Bilirubin,Total 1.1 mg/dl (0.2-1); Globulin 4.4 gm/dl (2.5-4.0); Total Protein 8.6 gm/dl (6.4-8.2); Troponin I < 0.015 ng/ml (0-0.045)
--- NOTE | 2019-03-28 12:24 | XRay Report ---
PA CHEST RADIOGRAPH AND UPRIGHT AND SUPINE AP RADIOGRAPHS OF THE ABDOMEN CLINICAL HISTORY: nvd, pain COMPARISON STUDY: CT of the abdomen and pelvis January 03, 2017. Chest radiograph March 21, 2019. FINDINGS: Lung volumes are normal. Lungs are clear. There is no pneumothorax or pleural effusion. Ca rdiac size is normal. Mediastinal contours are unremarkable. There is no evidence for pulmonary edema . No free air is present. The bowel gas pattern is normal. Intrauterine device is noted. Pelvic calci fications favor phleboliths. IMPRESSION: 1. No free air or evidence of bowel obstruction. 2. No acute cardiopulmonary findings. ACT 112: Negative or not required by law. Electronically signed by: Raúl Love M.D. 03/28/2019 12:23 PM
[2019-03-28 13:29] LABS: Appearance Urine Clear (Clear); Bacteria Urine Automated Negative (Negative); Bilirubin Urine Negative (Negative); Blood Urine Negative (Negative); Color Urine Yellow; Epithelial Cell Urine Auto 20-30 /lpf (0-5); Glucose Urine UA Negative (Negative); Ketones Urine 1+ (Negative); Leukocyte Esterase Urine Negative (Negative); Nitrite Urine Negative (Negative); Protein Urine Trace (Negative); Specific Gravity Urine 1.032 (1.000-1.030); Urobilinogen Urine Negative (Negative); pH Urine 5.5 (4.5-7.5)
--- NOTE | 2019-03-28 14:47 | History & Physical Report ---
Date of Service March 28, 2019 Assessment & Plan (1) Diarrhea: This is a 43-year-old female with a PMH of papillary thyroid carcinoma s/p thyroidectomy, IBS, depression, OCD, TIM and other medical problems listed below who presents with nausea, vomiting and diarrhea since yesterday. -Symptoms started around 7 PM yesterday with cramping abdominal pain followed by multiple episodes of diarrhea. Denies any hematochezia or melena. Endorses sick contacts -Afebrile. Likely viral etiology. Mild leukocytosis of 13.4 -Chest/abdomen XR with no free air or evidence of bowel obstruction and no acute cardiopulmonary findings -C diff pending (2) Vomiting: Endorses 2 episodes of emesis this morning with continued nausea -Given IV fluids and antiemetics in ED with improvement -No electrolyte abnormalities noted. Monitor with daily BMP (3) Abnormal EKG: EKG today with NSR and new T wave inversions in lateral leads -No chest pain or palpitations. ED physician discussed with cardiology, who would like to continue to monitor patient overnight -Telemetry, trend troponin, routine cardiology consult ordered (4) Anxiety: (5) Depression: Continue SSRI, clonazepam PRN (6) IBS (irritable bowel syndrome): Bentyl QID PRN DVT Ppx: Tolu mejiae, early ambulation Code status: FULL PCP: Ananya Dispo: Observation med tele. Plan to return home once medically stable. Patient seen in collaboration with Dr. Kessler. Please see addendum. History of Present Illness Chief Complaint: Nausea, vomiting, diarrhea Primary Care Provider: Rajan Hare MD This is a 43-year-old female with a PMH of papillary thyroid carcinoma s/p thyroidectomy, IBS, depression, OCD, TIM and other medical problems listed below who presents with nausea, vomiting and diarrhea since yesterday. Symptoms started around 7 PM yesterday with cramping abdominal pain followed by multiple episodes of diarrhea. Denies any hematochezia or melena. [place] nauseated and had 2 episodes of emesis this morning with continued abdominal pain and diarr hea. Associated with lightheadedness. Denies any fever, chills, chest pain, palpitations, shortness of breath, dysuria or constipation. Endorses sick contacts. Also with recent URI treated with Z-Taj 3 weeks ago. Denies any recent cough or rhinorrhea. Allergies Allergy/AdvReac Type Severity Reaction Status Date / Time prednisone AdvReac Intermediate HYPERTENSIO Verified 03/28/19 11:53 N Home Medications Home Medications Medication Instructions Recorded Confirmed Type albuterol sulfate [ProAir HFA] 2 puff INHALATION Q4H PRN 04/07/18 03/28/19 History clonazepam 0.5 mg PO BID PRN 04/07/18 03/28/19 History epinephrine [EpiPen] 0.3 mg IM DIRECTED PRN 04/07/18 03/28/19 History inulin [Fiber Gummies] 2 g PO QAM 04/07/18 03/28/19 History levothyroxine 125 mcg PO QAM 04/07/18 03/28/19 History vnglkrke-vkdk-MA-calcium-mins 1 tab PO QAM 04/07/18 03/28/19 History [Women's One Daily] polyethylene glycol 3350 [Miralax] 17 g PO DAILY PRN 04/07/18 03/28/19 History triamcinolone acetonide 2 spray INTRANASAL BID 04/07/18 03/28/19 History fluoxetine 20 mg PO QDL 08/27/18 03/28/19 History loratadine [Claritin] 10 mg PO QAM 08/27/18 03/28/19 History fluticasone propionate [Flovent 2 puff INHALATION BID 03/21/19 03/28/19 History HFA] ibuprofen 200 mg PO Q6H PRN 03/21/19 03/28/19 History cyanocobalamin (vitamin B-12) 1,000 mcg SUBLINGUAL DAILY 03/28/19 03/28/19 History dicyclomine 10 mg PO QID PRN 03/28/19 03/28/19 History Past Med/Surg History Medical History (Updated 03/28/19 @ 15:49 by Maureen Christopher PA-C) Anxiety (Chronic) Depression (Chronic) Hx of migraines (Chronic) IBS (irritable bowel syndrome) (Chronic) Surgical History H/O thyroidectomy History of appendectomy (Resolved) History of tonsillectomy (Resolved) Family History Mother Stroke Hypertension Social History (Updated 03/28/19 @ 14:47 by Maureen Christopher PA-C) Preferred Language: Danish Current Living Situation: Family Feels Safe at Home: Yes Smoking Status: Never smoker Hx Alcohol Use: Yes Alcohol Intake Frequency: Rarely Hx Substance Use: No Review of Systems Review of Systems: At least ten systems reviewed and negative except as noted in the HPI. Physical Exam Physical Exam: Please see Dr. Kessler's addendum for physical exam. Results & Data Vital Signs (Past 12 Hours) Vital Signs Temp Pulse Pulse Resp BP BP Pulse Ox 03/28/19 14:00 75 18 107/64 97 03/28/19 12:29 68 18 108/63 97 03/28/19 10:47 97 03/28/19 10:46 36.7 C 73 16 104/66 97 Laboratory Results Short CBC 03/28/19 Range/Units 11:04 WBC 13.44 H (4.8-10.8) K/uL Hgb 14.9 (12.0-16.0) g/dL Hct 42.9 (37-47) % Plt Count 353 (130-400) K/uL BMP 03/28/19 11:04 Sodium 138 Potassium 4.2 Chloride 107 Carbon Dioxide 20 L BUN 19 H Creatinine 0.88 Glucose 107 H Calcium 8.2 L Cardiac Enzymes 03/28/19 Range/Units 11:04 Troponin I < 0.015 (0-0.045) ng/ml Liver Function 03/28/19 Range/Units 11:04 Total Bilirubin 1.1 H (0.2-1) mg/dl AST 5 L (15-37) U/L ALT 16 (12-78) U/L Alkaline Phosphatase 37 L (45-117) U/L Albumin 4.2 (3.4-5.0) gm/dl Urine 03/28/19 Range/Units 13:10 Urine Color Yellow Urine Appearance Clear (Clear) Urine pH 5.5 (4.5-7.5) Ur Specific Berry 1.032 H (1.000-1.030) Urine Protein Trace H (Negative) Urine Glucose (UA) Negative (Negative) Diagnostic Findings Chest/abdomen XR: IMPRESSION: 1. No free air or evidence of bowel obstruction. 2. No acute cardiopulmonary findings. ECG Findings: + T-wave inversion (Lateral) Supervising Physician Co-Signing Physician Notes I performed a history and physical examination of the patient on 03/28/2019. I have discussed the patient's management with the advanced practitioner. Please refer to the PA-C note for the documented findings and plan of care. This is a 43-year-old female who came to the ER because of nausea/vomiting and abdominal pain which she developed last night. She had peanut butter bread for dinner last night along with her daughter. Her daughter is fine but she developed several episodes of loose stool at night without any blood and she did have abdominal pain. This morning she also developed nausea and vomited several times. She denies any fever. She had a sinus infection for which she took azithromycin for 5 days and finished it about 2 weeks ago. On physical exam: General: Alert and oriented x 3. NAD HENT: Normocephalic, atraumatic, pupils round and equally reactive to light, oral mucosa: moist Neck: Supple, no lymph nodes palpated, no thyromegaly CVS: Normal S1, S2. No murmur, rub or gallop. PMI non displaced. Peripheral pulses normal. Resp: Normal percussion. Normal breath sounds bilaterally. No wheezing or rales heard Abdomen: Soft, very mild tenderness in the lower quadrants, no hepatosplenomegaly. Bowel sounds positive Extremities: No pitting edema Neuro: Power 5/5 throughout, grossly normal sensations, DTR's normal Psychiatry: Normal mood, normal thought process In the ER she was afebrile. Her lab work was unremarkable and an x-ray of the abdomen did not show any abnormalities. An EKG was obtained which showed T wave inversions in the lateral leads. ER attending discussed this with cardiology who recommended admission to the hospital for further evaluation of these T wave inversions. Patient's potassium and magnesium are in the normal range. She does not have any history of coronary artery disease and does not report any anginal symptoms. These inversions may be related to the GI illness although she has not have any outstanding electrolyte abnormalities. We will keep her hydrated, give her clear liquid diet today and obtain stool studies. Cardiology will be consulted. Rest as above. (1) Diarrhea Diarrhea type: unspecified type Qualified Code(s): R19.7 - Diarrhea, unspecified (2) Vomiting Nausea presence: with nausea Vomiting Intractability: unspecified Vomiting type: unspecified Qualified Code(s): R11.2 - Nausea with vomiting, unspecified
[2019-03-28] MEDS ORDERED: ACETAMINOPHEN 325 MG TAB PO PRN (16:13)
[2019-03-28] MEDS ORDERED: ONDANSETRON INJ 2 MG/ML 2 ML VIAL IV PRN (16:13)
[2019-03-28] MEDS ORDERED: clonazePAM 0.5 MG TAB PO PRN (16:13)
[2019-03-28] MEDS ORDERED: ALBUTEROL HFA 8 GM INHALER INH PRN (16:13)
--- NOTE | 2019-03-28 16:33 | Emergency Department Note ---
Entered by Joelle Wood acting as a scribe for Abdelrahman Morse MD History of Present Illness General Chief complaint: Vomiting Time Seen by Provider: 03/28/19 10:39 Source: patient History of Present Illness Provider complaint: diarrhea Onset (ago): day(s) 1 Location: abdomen Pain Consistency: + intermittent and + colicky Current Pain Intensity: 6 Quality: + other (diarrhea ) Associated symptoms: + diaphoresis, + nausea/vomiting, + syncope, + weakness and + other (Positive lighthededness; Positive abdominal pain; Negative urinary symptoms; Negative bloody stools; Negative bloody vomit;); no chest pain and no fever/chills The patient, who is a 43 year old female with a medical history of IBS, pneumonia and bronchitis, presents to the Emergency Room with complaints of intermittent episodes of diarrhea that started last night. The patient states th at when she woke up this morning she started vomiting and has had multiple episodes throughout the day. The patient notes that she was very weak and lightheaded while she was in the bathroom. The patient states the last thing she remembers is falling into her boyfriends arm. The patient confirms that she had a syncopal episode.The patient states that after this episode the patient started sweating profusely and felt hot. The patient confirms constant cramping and colicky abdominal pain that has a pain intensity of 6. The patient denies chest pain, fever, urinary symptoms, bloody stools or bloody vomit. The patient notes that her daughter ate the same dinner she did and is fine. The patient n otes a couple people she is around have similar symptoms. The patient denies any current significant medical conditions. Home Medications Home Medications Medication Instructions Recorded Confirmed Type albuterol sulfate [ProAir HFA] 2 puff INHALATION Q4H PRN 04/07/18 03/28/19 History clonazepam 0.5 mg PO BID PRN 04/07/18 03/28/19 History epinephrine [EpiPen] 0.3 mg IM DIRECTED PRN 04/07/18 03/28/19 History inulin [Fiber Gummies] 2 g PO QAM 04/07/18 03/28/19 History levothyroxine 125 mcg PO QAM 04/07/18 03/28/19 History xisffatm-oeja-HZ-calcium-mins 1 tab PO QAM 04/07/18 03/28/19 History [Women's One Daily] polyethylene glycol 3350 [Miralax] 17 g PO DAILY PRN 04/07/18 03/28/19 History triamcinolone acetonide 2 spray INTRANASAL BID 04/07/18 03/28/19 History fluoxetine 20 mg PO QDL 08/27/18 03/28/19 History loratadine [Claritin] 10 mg PO QAM 08/27/18 03/28/19 History fluticasone propionate [Flovent 2 puff INHALATION BID 03/21/19 03/28/19 History HFA] ibuprofen 200 mg PO Q6H PRN 03/21/19 03/28/19 History cyanocobalamin (vitamin B-12) 1,000 mcg SUBLINGUAL DAILY 03/28/19 03/28/19 History dicyclomine 10 mg PO QID PRN 03/28/19 03/28/19 History Allergies Allergy/AdvReac Type Severity Reaction Status Date / Time prednisone AdvReac Intermediate HYPERTENSIO Verified 03/28/19 11:53 N Past Med/Surg History Medical History (Updated 03/28/19 @ 15:49 by Maureen Christopher PA-C) Anxiety (Chronic) Depression (Chronic) Hx of migraines (Chronic) IBS (irritable bowel syndrome) (Chronic) Surgical History H/O thyroidectomy History of appendectomy (Resolved) History of tonsillectomy (Resolved) Family History Mother Stroke Hypertension Social History (Updated 03/28/19 @ 14:47 by Maureen Christopher PA-C) Preferred Language: Romanian Communication Ability: Effective Food Preparation Worker Required: No Beliefs That Will Affect Care: None Current Living Situation: Spouse Other Information That Helps Us Care for You: No Feels Safe at Home: Yes Smoking Status: Never smoker Do You Dip or Chew Tobacco: No ; Second Hand Exposure: No ; Hx Alcohol Use: Yes Alcohol Intake Frequency: Rarely Hx Substance Use: No Review of Systems See HPI for pertinent positives & negatives. and A total of 10 systems reviewed and were otherwise negative Physical Exam Vital Signs Vital Signs - 24 hr 03/28/19 10:46 03/28/19 10:47 03/28/19 12:29 Temperature 36.7 C Temperature Source Oral Pulse Rate 73 Pulse Rate [Apical] 68 Pulse Rhythm Regular Pulse Strength Normal Respiratory Rate 16 18 Respiratory Effort / Characteristics Non-Labored Spontaneous Respiratory Depth Normal Blood Pressure 104/66 Blood Pressure [Left Arm] 108/63 Blood Pressure Mean 78 Blood Pressure Mean [Left Arm] 78 Blood Pressure Position Lying Pulse Oximetry 97 97 97 Oxygen Delivery Method Room Air Room Air Room Air Sepsis Recent Fever Within 48 Hours No Sepsis New/Unexplained Change in Mental Status No Sepsis Action Taken by Nursing No Action Required 03/28/19 14:00 Temperature Temperature Source Pulse Rate Pulse Rate [Apical] 75 Pulse Rhythm Pulse Strength Respiratory Rate 18 Respiratory Effort / Characteristics Respiratory Depth Blood Pressure Blood Pressure [Left Arm] 107/64 Blood Pressure Mean Blood Pressure Mean [Left Arm] 78 Blood Pressure Position Pulse Oximetry 97 Oxygen Delivery Method Room Air Sepsis Recent Fever Within 48 Hours Sepsis New/Unexplained Change in Mental Status Sepsis Action Taken by Nursing GENERAL: Patient is in no acute distress. HEENT: No acute trauma, normocephalic atraumatic, mucous membranes moist, no nasal congestion, no scleral icterus. NECK: No stridor, no adenopathy, no meningismus, trachea is midline. LUNGS: Clear to auscultation bilaterally, no wheeze, no rhonchi, breath sounds equal. HEART: Without murmurs gallops or rubs, regular rate and rhythm. ABDOMEN: Soft, moderately tender in the epigastric region, bowel sounds positive, no hernias, no peritonitis. EXTREMITIES: No cyanosis or edema, full range of motion of all the joints without pain or difficulty, no signs for acute trauma. NEUROLOGIC: Oriented x 3, no acute motor or sensory deficits, no focal weakness. SKIN: No rash, no jaundice, no diaphoresis. Course Course 1044: Past medical records reviewed. The patient was evaluated in room C5. A complete history and physical exam was performed. 1323: I reviewed the patient's case with Dr. Youngblood, Cardiology. He recommends a hospital stay. 1356: I reviewed the patient's case with Dr. Kessler, [facility] Hospitalist. He will evaluate the patient for further management. Consultations Consultation #1: I reviewed the patient's case with Dr. Youngblood, Cardiology. He recommends a hospital stay. Time: 13:23 Consultation #2: I reviewed the patient's case with Dr. Kessler, [facility] Hospitalist. He will evaluate the patient for further management. Time: 13:56 Administered Medications Discontinued Medications Sodium Chloride (Nss 1000ml) 2,000 mls @ 999 mls/hr IV .Q2H1M ONE Stop: 03/28/19 12:46 Last Infusion: 03/28/19 13:24 Dose: 0 mls/hr Documented by: [id number] Admin: 03/28/19 11:10 Dose: 999 mls/hr Documented by: [id number] Promethazine HCl 6.25 mg/ (Sodium Chloride) 50.25 mls @ 201 mls/hr IV NOW STA Stop: 03/28/19 11:00 Last Infusion: 03/28/19 11:49 Dose: 0 mls/hr Documented by: [id number] Admin: 03/28/19 11:33 Dose: 201 mls/hr Documented by: [id number] Acetaminophen (Ofirmev) 1,000 mg in 100 mls @ 400 mls/hr IV NOW STA Stop: 03/28/19 11:00 Last Infusion: 03/28/19 11:25 Dose: 0 mls/hr Documented by: [id number] Admin: 03/28/19 11:10 Dose: 400 mls/hr Documented by: [id number] Ketorolac Tromethamine (Toradol) 15 mg IV NOW STA Stop: 03/28/19 10:47 Last Admin: 03/28/19 11:26 Dose: Not Given Documented by: [id number] Ondansetron HCl (Zofran) 4 mg IV NOW STA Stop: 03/28/19 10:47 Last Admin: 03/28/19 11:10 Dose: 4 mg Documented by: [id number] Medical Decision Making Differential Diagnosis Differential diagnosis includes: dehydration, electrolyte imbalance, urinary tract infection, dysrhythmia, vasovagal syncope, food borne illness, viral illness, anxiety, as well as others were entertained. Medical Records Attestation: I reviewed the patient's medical records. Home Medications Current Medication List: was personally reviewed by me Laboratory Data Attestation: I reviewed the patient's lab results. Result diagrams: 03/28/19 11:04 03/28/19 11:04 Lab Results 03/28/19 03/28/19 03/28/19 Range/Units 11:04 11:04 13:10 WBC 13.44 H (4.8-10.8) K/uL RBC 4.88 (4.2-5.4) M/uL Hgb 14.9 (12.0-16.0) g/dL Hct 42.9 (37-47) % MCV 87.9 (80-100) fL MCH 30.5 (25-34) pg MCHC 34.7 (32-36) g/dL RDW Std Deviation 42.2 (36.4-46.3) fL RDW Coeff of Rafal 13.1 (11.5-14.5) % Plt Count 353 (130-400) K/uL MPV 9.7 (7.4-10.4) fL Immature Gran % (Auto) 0.2 % Neut % (Auto) 87.1 % Lymph % (Auto) 7.9 % [place] % (Auto) 3.3 % Eos % (Auto) 1.3 % Baso % (Auto) 0.2 % Immature Gran # (Auto) 0.03 H (0.00-0.02) K/uL Neut # (Auto) 11.69 H (1.4-6.5) K/uL Lymph # (Auto) 1.06 L (1.2-3.4) K/uL [place] # (Auto) 0.45 (0.11-0.59) K/uL Eos # (Auto) 0.18 (0-0.5) K/uL Baso # (Auto) 0.03 (0-0.2) K/uL Sodium 138 (136-145) mmol/L Potassium 4.2 (3.5-5.1) mmol/L Chloride 107 (98-107) mmol/L Carbon Dioxide 20 L (21-32) mmol/L Anion Gap 11.0 (3-11) BUN 19 H (7-18) mg/dl Creatinine 0.88 (0.6-1.2) mg/dl Est Cr Clr Drug Dosing 84.8 ml/min Est GFR ( Amer) 93.3 Est GFR (Non-Af Amer) 80.5 BUN/Creatinine Ratio 21.3 H (10-20) Glucose 107 H (70-99) mg/dl Calcium 8.2 L (8.5-10.1) mg/dl Magnesium 2.2 (1.8-2.4) mg/dl Total Bilirubin 1.1 H (0.2-1) mg/dl AST 5 L (15-37) U/L ALT 16 (12-78) U/L Alkaline Phosphatase 37 L (45-117) U/L Troponin I < 0.015 (0-0.045) ng/ml Total Protein 8.6 H (6.4-8.2) gm/dl Albumin 4.2 (3.4-5.0) gm/dl Globulin 4.4 H (2.5-4.0) gm/dl Albumin/Globulin Ratio 1.0 (0.9-2) Lipase 93 (73-393) U/L Urine Color Yellow Urine Appearance Clear (Clear) Urine pH 5.5 (4.5-7.5) Ur Specific [place] 1.032 H (1.000-1.030) Urine Protein Trace H (Negative) Urine Glucose (UA) Negative (Negative) Urine Ketones 1+ H (Negative) Urine Blood Negative (Negative) Urine Nitrite Negative (Negative) Urine Bilirubin Negative (Negative) Urine Urobilinogen Negative (Negative) Ur Leukocyte Esterase Negative (Negative) Urine WBC (Auto) 1-5 (0-5) /hpf Urine RBC (Auto) 5-10 H (0-4) /hpf U Hyaline Cast (Auto) 5-10 H (0-5) /lpf U Epithel Cells (Auto) 20-30 H (0-5) /lpf Urine Bacteria (Auto) Negative (Negative) Imaging Data Radiologist's Impression: Radiology results as stated below per my review and the radiologist's interpretation: PA CHEST RADIOGRAPH AND UPRIGHT AND SUPINE AP RADIOGRAPHS OF THE ABDOMEN CLINICAL HISTORY: nvd, pain COMPARISON STUDY: CT of the abdomen and pelvis January 03, 2017. Chest radiograph March 21, 2019. FINDINGS: Lung volumes are normal. Lungs are clear. There is no pneumothorax or pleural effusion. Cardiac size is normal. Mediastinal contours are unremarkable. There is no evidence for pulmonary edema. No free air is present. The bowel gas pattern is normal. Intrauterine device is noted. Pelvic calcifications favor phleboliths. IMPRESSION: 1. No free air or evidence of bowel obstruction. 2. No acute cardiopulmonary findings. ACT 112: Negative or not required by law. Electronically signed by: Raúl Love M.D. 03/28/2019 12:23 PM ECG Data Attestation: I personally reviewed and interpreted this ECG as follows: Indication: + vomiting Rate (beats per minute): 68 Rhythm: + normal sinus ECG ST segments: + T-wave inversions (Lateral); no ST elevation ECG Findings: + Other (QTC 425) Comparison ECG Date: from (03/21/2019) Change: the following changes noted (T waves changes are new) Additional Comments: Second EKG Reading: Normal sinus rhythm. 63 BPM. Inverted T waves in inferior and lateral leads. QTC is 470. Unchanged from earlier. Blood Pressure Blood Pressure Findings: Normal blood pressure MDM Narrative There is a mild leukocytosis, this could be consistent with her vomiting and diarrhea. No anemia. No significant electrolyte abnormality or kidney failure. There were few subtle liver enzyme elevations. No evidence for pancreatitis by our testing. EKG shows a sinus rhythm, there are some inverted T waves in the inferior and lateral leads, these T wave changes persisted on a repeat EKG. Cardiac enzyme testing x1 is not consistent with acute cardiac injury. Abdominal series does not show bowel obstruction, free air or pneumonia. Patient received IV saline, 2 L. She was given IV Phenergan, IV Zofran and IV Toradol. She received IV Tylenol. She does feel improved. I did discuss the abnormal EKG with cardiology. Given the persistent EKG abnormality, given the syncopal spell, a hospital stay and further work-up was felt warranted. I talked to the patient about her findings. She was agreeable to a hospital stay. I did speak with the employment evaluator/case manager. The on-call hospitalist has been consulted. Continuous Cardiac Monitoring: An order was placed for continuous cardiac monitoring. The monitor shows a rate of 75 with a normal sinus rhythm. Impression & Plan Abnormal EKG, Syncope, Vomiting, Diarrhea, Dehydration Discharge Plan Visit Data *Final* Discharge Date/Time: 03/28/19 15:33 Chief Complaint: Vomiting Other Complaint: Illness ED Provider: Abdelrahman Morse Discharge Problem: Abnormal EKG, Syncope, Vomiting, Diarrhea, Dehydration Patient Disposition: Admitted As Inpatient Discharge Instructions Interventions: ED Discharge Assessment Last Done: 03/28/19 15:33 Discharge Problem: Vomiting Qualifiers: Vomiting type: unspecified Vomiting Intractability: unspecified Nausea presence: with nausea Qualified Code(s): R11.2 - Nausea with vomiting, unspecified Diarrhea Qualifiers: Diarrhea type: unspecified type Qualified Code(s): R19.7 - Diarrhea, unspecified The scribe's documentation has been prepared under my direction and personally reviewed by me in its entirety. I confirm that the note above accurately reflects all work, treatment, procedures, and medical decision making performed by me.
[2019-03-28] MEDS: FLUOXETINE HCL 20 MG CAP PO SCH ×2 (19:40→21:17)
[2019-03-28] MEDS: TRIAMCINOLONE ACET NASAL SPRAY 10.8ML BTL NAE SCH (21:17)
[2019-03-28] MEDS: DICYCLOMINE HCL 10 MG CAP PO PRN (21:24)
[2019-03-29] MEDS: LEVOTHYROXINE SODIUM 125 MCG TABLET PO SCH (05:48)
[2019-03-29 06:19] LABS: Hematocrit (blood only) 35.8 % (37-47); Hemoglobin 12.5 g/dL (12.0-16.0); Mean Corpuscular Hemoglobin 30.3 pg (25-34); Mean Corpuscular Hgb Conc 34.9 g/dL (32-36); Mean Corpuscular Volume 86.7 fL (80-100); Platelet Count 306 K/uL (130-400); RDW Coefficient of Variation 13.3 % (11.5-14.5); RDW Standard Deviation 42.3 fL (36.4-46.3); Red Blood Count 4.13 M/uL (4.2-5.4); White Blood Count 5.67 K/uL (4.8-10.8)
[2019-03-29 06:54] LABS: BUN Creatinine Ratio 14.4 (10-20); Calcium 7.2 mg/dl (8.5-10.1); Creatinine Clr Calc Pharmacy 110.1 ml/min; Est GFR (African American) 124.8; Est GFR (Non-African American) 107.7; Potassium 3.6 mmol/L (3.5-5.1)
[2019-03-29] MEDS: FLUTICASONE FUROATE 200MCG 14 PUFFS/INHALER INH SCH (08:39)
[2019-03-29] MEDS: CYANOCOBALAMIN 500 MCG TABLET (VITAMIN B-12) PO SCH (08:40)
[2019-03-29] MEDS: TRIAMCINOLONE ACET NASAL SPRAY 10.8ML BTL NAE SCH ×2 (08:40→20:21)
[2019-03-29] MEDS: MULTIVITAMIN TAB PO SCH (08:40)
[2019-03-29] MEDS: LORATADINE 10 MG TAB PO SCH (08:40)
--- NOTE | 2019-03-29 08:58 | Electrocardiogram Report ---
Test Reason : Blood Pressure : / mmHG Vent. Rate : 068 BPM Atrial Rate : 068 BPM P-R Int : 162 ms QRS Dur : 070 ms QT Int : 400 ms P-R-T Axes : 051 040 098 degrees QTc Int : 425 ms Poor data quality, interpretation may be adversely affected Normal sinus rhythm T wave abnormality, consider lateral ischemia Abnormal ECG When compared with ECG of 21-MAR-2019 12:29, Non-specific change in ST segment in Inferior leads T wave inversion now evident in Lateral leads Confirmed by Raúl Haney ([id number]) on 03/29/2019 8:58:02 AM Referred By: REFERRED SELF Confirmed By:Raúl Haney
--- NOTE | 2019-03-29 09:10 | Electrocardiogram Report ---
Test Reason : Blood Pressure : / mmHG Vent. Rate : 063 BPM Atrial Rate : 063 BPM P-R Int : 170 ms QRS Dur : 078 ms QT Int : 460 ms P-R-T Axes : 054 040 -51 degrees QTc Int : 470 ms Normal sinus rhythm T wave abnormality, consider inferior ischemia T wave abnormality, consider anterolateral ischemia Prolonged QT Abnormal ECG When compared with ECG of 28-MAR-2019 10:54, (unconfirmed) Inverted T waves have replaced nonspecific T wave abnormality in Inferior leads T wave inversion now evident in Anterior leads Confirmed by Raúl Haney ([id number]) on 03/29/2019 9:10:24 AM Referred By: REFERRED SELF Confirmed By:Raúl Haney
[2019-03-29] MEDS ORDERED: CALCIUM GLUCONATE 10% 1,000 MG in SODIUM CHLORIDE 0.9% 50 ML IV STA (09:21)
[2019-03-29] MEDS ORDERED: ERGOCALCIFEROL 50,000 UNITS CAP PO STA (09:21)
--- NOTE | 2019-03-29 09:37 | Cardiology Consultation ---
Date of Consultation March 29, 2019 Assessment & Plan (1) Abnormal EKG: Patient with a EKG changes including diffuse T wave inversions noted yesterday at 1300 in the setting of what sounds like a viral gastroenteritis. She has had sick contacts both at work and at home. C. difficile antibody was negative. She is feeling better after supportive care with IV fluids and additional time. Denies any recent chest discomfort. I do not think her nauseousness sounds like it was an anginal equivalent as it can be explained otherwise as noted above. I think her presyncope/syncope can be explained due to the severity of her illness. It is reassuring that there has been no dysrhythmias noted on telemetry. Cardiac enzymes have been negative. In terms of risk factors for ischemic heart disease, there is no strong family history of ischemic heart disease. The patient's most recent lipid panel that I see on file dates back to 2008 with an LDL level of 143 mg/dL, and this will be reassessed this admission. Her serum and ionized calcium levels were low, and her vitamin D level is low. I am going to defer to the hospitalist service for further assessment of this especially given her history of papillary thyroid carcinoma and thyroidectomy. Her PTH this admission was normal. From a cardiac perspective, I think would be most reasonable for the patient to increase her activity as tolerated, and if she feels better and is able to tolerate a regular diet, consider discharge later today with plans for outpatient stress echocardiogram to rule out occult cardiomyopathy or ischemic heart disease, but I think this is most prudently performed after the patient's acute viral illness has resolved since her cardiac enzymes and heart rhythm has been stable, I do not think this is a test that needs to be done urgently when she is not at her best and believe that if stress testing is performed now her stress test may be prone toward a false positive result. Going to place the order for the stress test in her outpatient [facility] chart. History of Present Illness Attending Physician: Kedar Lazar MD History of Present Illness Cris Mcclellan is a 43 year old female seen in cardiology consultation per the request of Dr Kessler of the [facility] Hospitalist service for the evaluation of an abnormal EKG. The patient has a history of anxiety, depression, irritable bowel syndrome as well as papillary thyroid carcinoma for which she is undergone past thyroidectomy. She notes that her daughter had recently been sick with a viral gastrointestinal illness several days ago. She also notes sick contacts at work. 2 days ago on Friday she began to develop nauseousness diarrhea, and then by 03/29/2019 she developed significant vomiting. Her was at work and she actually called and asked for him to come home because she was feeling so ill. After an episode of vomiting, he was assisting her from the bathroom back to the bedroom and she momentarily lost postural tone with him having had to catch her. She felt generalized illness, and for this reason she subsequently presented to the emergency room for further assessment. Her initial blood pressure on presentation was 104/66 which is at least 20 mmHg lower than her typical baseline per review of her records. EKG performed on 03/28/2019 at 10:54 AM revealed sinus rhythm at 68 bpm with T wave inversions noted in the lateral precordial leads V4 to V6 as well as the high lateral leads I and aVL. Compared to the prior tracing performed on March 21, 2019 the T wave inversions were new. The patient was admitted and received IV fluids. She states that she feels much better this morning. No lightheadedness or dizziness. And her most recent episode of diarrhea was last night several hours ago. She has no additional nauseousness. No subjective fevers. No blood per rectum. No chest pain or shortness of breath. Repeat EKG tracing performed yesterday at 1302 once again demonstrated the lateral T wave inversions, and also T wave inversion was noted in the inferior leads. Repeat tracing this morning at 641 revealed sinus bradycardia 56 bpm, the T wave inversions noted laterally have been replaced by mild nonspecific repolarization changes with lower amplitude T wave inversion noted in leads V4 and V5, and the inferior T wave inversions are no longer present, with diffuse T wave flattening. Troponin I has been undetectable at less than 0.015 NG per mL x3 readings. Telemetry reveals sinus rhythm in the range of 60 to 70 bpm without arrhythmia overnight. Family History: Mother with history of diabetes and hypertension. No history of coronary heart disease or unexplained sudden cardiac in her first-degree relatives. Allergies Allergy/AdvReac Type Severity Reaction Status Date / Time prednisone AdvReac Intermediate HYPERTENSIO Verified 03/28/19 11:53 N Home Medications Home Medications Medication Instructions Recorded Confirmed Type albuterol sulfate [ProAir HFA] 2 puff INHALATION Q4H PRN 04/07/18 03/28/19 History clonazepam 0.5 mg PO BID PRN 04/07/18 03/28/19 History epinephrine [EpiPen] 0.3 mg IM DIRECTED PRN 04/07/18 03/28/19 History inulin [Fiber Gummies] 2 g PO QAM 04/07/18 03/28/19 History levothyroxine 125 mcg PO QAM 04/07/18 03/28/19 History nonpemzp-ekxo-BU-calcium-mins 1 tab PO QAM 04/07/18 03/28/19 History [Women's One Daily] polyethylene glycol 3350 [Miralax] 17 g PO DAILY PRN 04/07/18 03/28/19 History triamcinolone acetonide 2 spray INTRANASAL BID 04/07/18 03/28/19 History fluoxetine 20 mg PO QDL 08/27/18 03/28/19 History loratadine [Claritin] 10 mg PO QAM 08/27/18 03/28/19 History fluticasone propionate [Flovent 2 puff INHALATION BID 03/21/19 03/28/19 History HFA] ibuprofen 200 mg PO Q6H PRN 03/21/19 03/28/19 History cyanocobalamin (vitamin B-12) 1,000 mcg SUBLINGUAL DAILY 03/28/19 03/28/19 History dicyclomine 10 mg PO QID PRN 03/28/19 03/28/19 History Patient History Medical History Anxiety (Chronic) Depression (Chronic) Hx of migraines (Chronic) IBS (irritable bowel syndrome) (Chronic) Surgical History H/O thyroidectomy History of appendectomy (Resolved) History of tonsillectomy (Resolved) Family History Mother Stroke Hypertension Social History Preferred Language: Mongolian Communication Ability: Effective Cad Designer 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 Required: No Beliefs That Will Affect Care: None Current Living Situation: Spouse Other Information That Helps Us Care for You: No Feels Safe at Home: Yes Smoking Status: Never smoker Do You Dip or Chew Tobacco: No ; Second Hand Exposure: No ; Hx Alcohol Use: Yes Alcohol Intake Frequency: Rarely Hx Substance Use: No Review of Systems Review of Systems: All systems reviewed & are unremarkable except as noted in HPI & below Physical Exam Physical Exam: Temp Pulse Resp BP Pulse Ox 36.8 C 60 18 114/75 98 03/29/19 07:18 03/29/19 09:00 03/29/19 07:18 03/29/19 07:18 03/29/19 07:18 Constitutional: WD/WN, vitals as above Respiratory: normal respiratory effort, lungs clear to auscultation Cardiovascular: RRR, no murmur, no edema Gastrointestinal (Abdomen): normal bowel sounds, soft, nontender, no hepatosplenomegaly Skin: no rashes, warm and dry Neurologic: PERRL, EOMI, accommodation nl, no face palsy, no dysarthria Results & Data ([facility]) Vital Signs (Past 12 Hours) Vital Signs Temp Pulse Pulse Resp BP Pulse Ox 03/29/19 07:18 36.8 C 61 18 114/75 98 03/29/19 03:37 36.8 C 64 18 103/68 97 03/28/19 23:39 36.8 C 64 15 120/79 96 03/28/19 23:04 61 Laboratory Results Cardiac Enzymes 03/28/19 03/29/19 Range/Units 11:04 07:43 AST 5 L (15-37) U/L Troponin I < 0.015 < 0.015 (0-0.045) ng/ml CBC 03/28/19 03/29/19 Range/Units 11:04 06:01 WBC 13.44 H 5.67 (4.8-10.8) K/uL RBC 4.88 4.13 L (4.2-5.4) M/uL Hgb 14.9 12.5 (12.0-16.0) g/dL Hct 42.9 35.8 L (37-47) % Plt Count 353 306 (130-400) K/uL Neut # (Auto) 11.69 H (1.4-6.5) K/uL Lymph # (Auto) 1.06 L (1.2-3.4) K/uL [place] # (Auto) 0.45 (0.11-0.59) K/uL Eos # (Auto) 0.18 (0-0.5) K/uL Baso # (Auto) 0.03 (0-0.2) K/uL Comprehensive Metabolic Panel 03/28/19 03/29/19 Range/Units 11:04 06:01 Sodium 138 140 (136-145) mmol/L Potassium 4.2 3.6 (3.5-5.1) mmol/L Chloride 107 112 H (98-107) mmol/L Carbon Dioxide 20 L 22 (21-32) mmol/L BUN 19 H 10 D (7-18) mg/dl Creatinine 0.88 0.67 (0.6-1.2) mg/dl Glucose 107 H 91 (70-99) mg/dl Calcium 8.2 L 7.2 L (8.5-10.1) mg/dl AST 5 L (15-37) U/L ALT 16 (12-78) U/L Alkaline Phosphatase 37 L (45-117) U/L Total Protein 8.6 H (6.4-8.2) gm/dl Albumin 4.2 (3.4-5.0) gm/dl Intake and Output 03/28/19 03/29/19 03/29/19 22:59 06:59 14:59 Intake Total 250 / 2400.25 Output Total 2 / 2 Balance - 2398.25 250 / 2398.25 Intake: Oral 250 / 250 Output: # Bowel Movements 2 / 2 Other: # Unmeasured Voids 2 Weight 80.8 kg 79 kg
--- NOTE | 2019-03-29 09:49 | Electrocardiogram Report ---
Test Reason : Blood Pressure : / mmHG Vent. Rate : 056 BPM Atrial Rate : 056 BPM P-R Int : 178 ms QRS Dur : 086 ms QT Int : 438 ms P-R-T Axes : 043 035 031 degrees QTc Int : 422 ms Sinus bradycardia Nonspecific T wave abnormality Abnormal ECG When compared with ECG of 28-MAR-2019 13:02, (unconfirmed) Nonspecific T wave abnormality has replaced inverted T waves in Lateral leads Confirmed by Raúl Haney ([id number]) on 03/29/2019 9:48:58 AM Referred By: REFERRED SELF Confirmed By:Raúl Haney
[2019-03-29 10:03] LABS: Chol HDL Ratio 5; Cholesterol 152 mg/dl (0-200); HDL Cholesterol 29 mg/dl; LDL Cholesterol Calculated 99 mg/dl; Triglycerides 122 mg/dl (0-150); VLDL Cholesterol 24 mg/dl
[2019-03-29] MEDS: CALCIUM 600MG + VIT D 400 IU TAB PO SCH (10:16)
[2019-03-29] MEDS: DICYCLOMINE HCL 10 MG CAP PO PRN (11:19)
[2019-03-29] MEDS: FLUOXETINE HCL 20 MG CAP PO SCH (11:53)
[2019-03-29] MEDS ORDERED: CALCIUM GLUCONATE 10% 10 ML VIAL IV STA (14:27)
[2019-03-29] MEDS ORDERED: CALCIUM GLUCONATE 10% 2,000 MG in SODIUM CHLORIDE 0.9% 50 ML IV STA (14:29)
[2019-03-29] MEDS ORDERED: MoRPHine SULFATE 2 MG/ML CARP IV STA (15:25)
--- NOTE | 2019-03-29 15:41 | Communication Note ---
Date of Service: March 29, 2019 Patient assessed per request of Dr. Lazar for complaint of acute stabbing right- sided chest discomfort, starts in her right axilla and radiates towards shoulder. EKG performed revealing sinus rhythm in the 60s without any ST or T wave changes, normal EKG actually improved compared to the 2 prior tracings this hospital stay. Symptoms are atypical for angina. She has had a resting echocardiogram performed today. I will review the images.
[2019-03-29 16:22] LABS: BUN Creatinine Ratio 11.9 (10-20); Blood Urea Nitrogen 9 mg/dl (7-18); Calcium 8.4 mg/dl (8.5-10.1); Carbon Dioxide 26 mmol/L (21-32); Chloride 109 mmol/L (98-107); Creatinine Clr Calc Pharmacy 93.4 ml/min; Est GFR (African American) 106.3; Est GFR (Non-African American) 91.7; Glucose 78 mg/dl (70-99); Potassium 3.8 mmol/L (3.5-5.1); Sodium 141 mmol/L (136-145)
[2019-03-29 16:28] LABS: Troponin I < 0.015 ng/ml (0-0.045)
--- NOTE | 2019-03-29 16:38 | Hospitalist Progress Note ---
Date of Service March 29, 2019 Assessment & Plan (1) Diarrhea: This is a 43-year-old female with a PMH of papillary thyroid carcinoma s/p thyroidectomy, IBS, depression, OCD, TIM and other medical problems listed below who presents with nausea, vomiting and diarrhea on 03/28/2019 -monitor the bowel movements (2) Vomiting: -vomiting at home on 03/28/2019 -no vomiting in hospital to date Hypocalcemia Vitamin D deficiency -serum calcium noted to be low as 7.2 on 04/08/19. an ionized calcium level was low. vitamin D levels low. normal PTH. Patient reported history of thyroid procedure in the past -oral calcium/vitamin D given also with 50,000 units of vitamin D and 1000 mg IV calcium gluconate given with some improvements of ionized calcium level from 0.94 to 0.98. on 04/08/2019 -plans of continuing IV calcium gluconate as 2000 grams IV and trend the ionized and serum calcium levels (3) Abnormal EKG: Chest pain -on admission on 03/28/2019 patient presented with and new T wave inversions in lateral leads -at the time - No chest pain or palpitations. ED physician discussed with cardiology, who would like to continue to monitor patient overnight -troponins negative x 3, no telemetry events -04/08/2019: patient was feeling well today on day time exam and resting echocardiogram was performed then after 3:40 PM 04/08/2019, medical doctor notified that patient had acute sharp right sided chest pain. patient is re-assessed after episode of right sided chest pain that caused her distress. Morphine was ordered for which she declined (no acute telemetry events, nonischemic EKG , troponin was drawn which is negative). patient again normal state of comfort. her at bedside. they agree for patient to be continued to be monitored in the hospital overnight. no shortness of breath. no dizziness. no headache. no nausea. no vomiting. no dizziness. no headache. Musculoskeletal exam was performed and no signs of soft tissue or muscle tenderness (4) Anxiety: (5) Depression: Continue SSRI, clonazepam PRN (6) IBS (irritable bowel syndrome): Bentyl QID PRN DVT Ppx: Tolu hose, early ambulation Code status: FULL PCP: Ananya Admission and Anticipated Discharge Date Admission Date: March 28, 2019. Discharge Date undetermined Subjective patient is re-assessed after episode of right sided chest pain that caused her distress. Morphine was ordered for which she declined (no acute telemetry events, nonischemic EKG , troponin was drawn). patient again normal state of comfort. her at bedside. they agree for patient to be continued to be monitored in the hospital overnight. no shortness of breath. no dizziness. no headache. no nausea. no vomiting. no di zziness. no headache. Musculoskeletal exam was performed and no signs of soft tissue or muscle tenderness Review of Systems Review of Systems: All systems reviewed & are unremarkable except as noted in HPI & below Physical Exam Constitutional: comfortable Results & Data ([facility]) Vital Signs (Past 12 Hours) Vital Signs Temp Pulse Pulse Resp BP Pulse Ox 03/29/19 15:02 36.8 C 67 20 113/80 97 03/29/19 11:05 36.9 C 64 18 121/84 97 03/29/19 09:00 60 03/29/19 07:18 36.8 C 61 18 114/75 98 (1) Diarrhea Diarrhea type: unspecified type Qualified Code(s): R19.7 - Diarrhea, unspecified (2) Vomiting Nausea presence: with nausea Vomiting Intractability: unspecified Vomiting type: unspecified Qualified Code(s): R11.2 - Nausea with vomiting, unspecified
[2019-03-30] MEDS: LEVOTHYROXINE SODIUM 125 MCG TABLET PO SCH (05:15)
[2019-03-30 06:02] LABS: BUN Creatinine Ratio 18.4 (10-20); Blood Urea Nitrogen 12 mg/dl (7-18); Calcium 8.1 mg/dl (8.5-10.1); Carbon Dioxide 27 mmol/L (21-32); Chloride 108 mmol/L (98-107); Creatinine Clr Calc Pharmacy 111.8 ml/min; Est GFR (African American) 125.4; Est GFR (Non-African American) 108.2; Glucose 90 mg/dl (70-99); Potassium 3.5 mmol/L (3.5-5.1); Sodium 139 mmol/L (136-145)
[2019-03-30 06:06] LABS: Troponin I < 0.015 ng/ml (0-0.045)
[2019-03-30] MEDS: MULTIVITAMIN TAB PO SCH (07:28)
[2019-03-30] MEDS: TRIAMCINOLONE ACET NASAL SPRAY 10.8ML BTL NAE SCH (07:28)
[2019-03-30] MEDS: CYANOCOBALAMIN 500 MCG TABLET (VITAMIN B-12) PO SCH (07:28)
[2019-03-30] MEDS: FLUTICASONE FUROATE 200MCG 14 PUFFS/INHALER INH SCH (07:29)
[2019-03-30] MEDS: LORATADINE 10 MG TAB PO SCH (07:29)
[2019-03-30] MEDS: CALCIUM 600MG + VIT D 400 IU TAB PO SCH (07:29)
[2019-03-30] MEDS ORDERED: CALCIUM GLUCONATE 10% 10 ML VIAL IV STA (07:30)
[2019-03-30] MEDS ORDERED: POTASSIUM CHLORIDE 20 MEQ TABCR PO STA (07:30)
[2019-03-30] MEDS ORDERED: CALCIUM GLUCONATE 10% 1,000 MG in SODIUM CHLORIDE 0.9% 50 ML IV ONE (08:00)
--- NOTE | 2019-03-30 08:13 | Hospitalist Progress Note ---
Date of Service March 30, 2019 Assessment & Plan (1) Diarrhea: This is a 43-year-old female with a PMH of papillary thyroid carcinoma s/p thyroidectomy, IBS, depression, OCD, TIM and other medical problems listed below who presents with nausea, vomiting and diarrhea on 03/28/2019 -monitor the bowel movements (2) Vomiting: -vomiting at home on 03/28/2019 -no vomiting in hospital to date Hypocalcemia Vitamin D deficiency -serum calcium noted to be low as 7.2 on 04/08/19. an ionized calcium level was low . vitamin D levels low around 20. normal PTH. Patient reported history of thyroid procedure in the past -oral calcium/vitamin D given also with 50,000 units of vitamin D and 1000 mg IV calcium gluconate given with some improvements of ionized calcium level from 0.94 to 0.98. on 04/08/2019 -continued IV calcium gluconate as 2000 grams IV and trend the ionized and serum calcium levels on 03/29/2019 03/30/2019" serum potassium 3.5 and ionized calcium 0.96 (these levels are generally unchanged despite oral calcium and 2 prior doses of IV calcium during this hospital stay totaling 3 grams IV when ionized calcium found to be 0.94 on this admission). I did order oral potassium and IV calcium gluconate x 1. I am unsure if patient will take these medications before she leaves. But informed patient to take oral supplements as prescribed as these supplements should help with fpc calcium and vitamin D repletion Patient does not want further lab draws patient denies current chest pain since yesterday evening. no shortness of breath. no abdomen pain. no vomiting. no headache. no dizziness. no distress (3) Abnormal EKG: Chest pain -on admission on 03/28/2019 patient presented with and new T wave inversions in lateral leads -at the time - No chest pain or palpitations. ED physician discussed with cardiology, who would like to continue to monitor patient overnight -troponins negative x 3, no telemetry events -04/08/2019: patient was feeling well today on day time exam and resting echoc ardiogram was performed then after 3:40 PM 04/08/2019, medical doctor notified that patient had acute sharp right sided chest pain. patient is re-assessed after episode of right sided chest pain that caused her distress. Morphine was ordered for which she declined (no acute telemetry events, nonischemic EKG , troponin was drawn which is negative). patient again normal state of comfort. her at bedside. they agree for patient to be continued to be monitored in the hospital overnight. no shortness of breath. no dizziness. no headache. no nausea. no vomiting. no dizziness. no headache. Musculoskeletal exam was performed and no signs of soft tissue or muscle tenderness 03/30/2019: no acute telemetry events and troponins subsequent to 04/08/2019 chest pain event is also negative follow ups 04/02/2019 11:20 AM Provider Rajan Hare MD Department Family Practice [facility] 04/13/2019 8:30 AM Provider Lockstitcher 1 Department Cardiac Studies, [facility] for stress test 04/19/2019 10:00 AM Provider Isaiah Youngblood DO Department Cardiology, [facility] 07/13/2019 10:30 AM Provider N[facility]LA [facility] Department [facility] 07/27/2019 10:00 AM Provider Karin Borrero MD Department Endocrinology, [place] discharge medications of calcium/vitamin D daily, vitamin 50,000 once every week x 4 weeks (can take on Mondays) [facility] [address] [place] [address] (4) Anxiety: -patient wishes for hospital discharge today on 03/30/2019. She reports that hospital stay is making her more anxious. Her at bedside agrees to the plan to take patient home with the outpatient follow ups. (5) Depression: -Continue SSRI, clonazepam PRN (6) IBS (irritable bowel syndrome): Bentyl QID PRN DVT Ppx: Tolu rae, early ambulation Code status: FULL PCP: Ananya Discharge Diagnosis: Abnormal EKG on admission as (new T wave Inversions in lateral leads) Nausea and Vomiting Diarrhea Hypocalcemia Vitamin D deficiency Chest Pain Anxiety Admission and Anticipated Discharge Date Admission Date: March 28, 2019 Subjective patient wishes for hospital discharge today. She reports that hospital stay is making her more anxious. Her at bedside agrees to the plan to take patient home with the outpatient follow ups. serum potassium 3.5 and ionized calcium 0.96 (these levels are generally unchanged despite oral calcium and 2 prior doses of IV calcium during this hospital stay totalling 3 grams IV when ionized calcium found to be 0.94 on this admission). I did order oral potassium and IV calcium gluconate x 1. I am unsure if patient will take these medications before she leaves. But informed patient to take oral supplements as prescribed as these supplements should help with fpc calcium and vitamin D repletion patient denies current chest pain since yesterday evening. no shortness of breath. no abdomen pain. no vomiting. no headache. no dizziness. no distress Review of Systems Review of Systems: All systems reviewed & are unremarkable except as noted in HPI & below Physical Exam Constitutional: WD/WN, vitals as above Eyes: PERRL, conjunctivae normal, anicteric sclerae ENMT: external ear and nose normal, oropharynx normal Neck: normal visual inspection Respiratory: normal respiratory effort, lungs clear to auscultation Gastrointestinal (Abdomen): normal bowel sounds, soft, nontender, no hepatosplenomegaly Musculoskeletal: Head/Neck/Chest: normocephalic and head atraumatic Neurologic: PERRL, EOMI, accommodation nl, no face palsy, no dysarthria CN's II-XI intact bilaterally Psychiatric: Orientation: alert, oriented x 3 and cooperative Results & Data ([facility]) Vital Signs (Past 12 Hours) Vital Signs Temp Pulse Pulse Resp BP Pulse Ox 03/30/19 07:23 36.7 C 57 L 18 134/86 98 03/30/19 00:00 36.4 C L 64 20 131/88 96 03/29/19 23:50 77 (1) Diarrhea Diarrhea type: unspecified type Qualified Code(s): R19.7 - Diarrhea, unspecified (2) Vomiting Nausea presence: with nausea Vomiting Intractability: unspecified Vomiting type: unspecified Qualified Code(s): R11.2 - Nausea with vomiting, unspecified
--- NOTE | 2019-03-30 08:29 | Discharge Summary ---
Date of Service March 30, 2019 Admission HPI Per Admitting Provider This is a 43-year-old female with a PMH of papillary thyroid carcinoma s/p thyroidectomy, IBS, depression, OCD, TIM and other medical problems listed below who presents with nausea, vomiting and diarrhea since yesterday. Symptoms started around 7 PM yesterday with cramping abdominal pain followed by multiple episodes of diarrhea. Denies any hematochezia or melena. Glen nauseated and had 2 episodes of emesis this morning with continued abdominal pain and diarrhea. Associated with lightheadedness. Denies any fever, chills, chest pain, palpitations, shortness of breath, dysuria or constipation. Endorses sick contacts. Also with recent URI treated with Z-Taj 3 weeks ago. Denies any recent cough or rhinorrhea. Admission Exam Per Admitting Provider General: Alert and oriented x 3. NAD HENT: Normocephalic, atraumatic, pupils round and equally reactive to light, oral mucosa: moist Neck: Supple, no lymph nodes palpated, no thyromegaly CVS: Normal S1, S2. No murmur, rub or gallop. PMI non displaced. Peripheral pulses normal. Resp: Normal percussion. Normal breath sounds bilaterally. No wheezing or rales heard Abdomen: Soft, very mild tenderness in the lower quadrants, no hepatosplenomegaly. Bowel sounds positive Extremities: No pitting edema Neuro: Power 5/5 throughout, grossly normal sensations, DTR's normal Psychiatry: Normal mood, normal thought process Principal Diagnosis Abnormal EKG on admission as (new T wave Inversions in lateral leads) Nausea and Vomiting Diarrhea Hypocalcemia Vitamin D deficiency Chest Pain Anxiety Discharge Exam Constitutional WD/WN, vitals as above comfortable Eyes PERRL, conjunctivae normal, anicteric sclerae ENMT external ear and nose normal, oropharynx normal Neck normal visual inspection Respiratory normal respiratory effort, lungs clear to auscultation Gastrointestinal (Abdomen) normal bowel sounds, soft, nontender, no hepatosplenomegaly Musculoskeletal Head/Neck/Chest: normocephalic and head atraumatic Neurologic PERRL, EOMI, accommodation nl, no face palsy, no dysarthria CN's II-XI intact bilaterally Psychiatric Orientation: alert, oriented x 3 and cooperative Discharge Data Allergies Allergy/AdvReac Type Severity Reaction Status Date / Time prednisone AdvReac Intermediate HYPERTENSIO Verified 03/28/19 11:53 N Consultations 03/28/19 13:26 ED Decision to Admit Stat 03/29/19 08:00 Consult Cardiology Routine Hospital Course (1) Diarrhea: This is a 43-year-old female with a PMH of papillary thyroid carcinoma s/p thyroidectomy, IBS, depression, OCD, TIM and other medical problems listed below who presents with nausea, vomiting and diarrhea on 03/28/2019 -monitor the bowel movements (2) Vomiting: -vomiting at home on 03/28/2019 -no vomiting in hospital to date Hypocalcemia Vitamin D deficiency -serum calcium noted to be low as 7.2 on 04/08/19. an ionized calcium level was low . vitamin D levels low around 20. normal PTH. Patient reported history of thyroid procedure in the past -oral calcium/vitamin D given also with 50,000 units of vitamin D and 1000 mg IV calcium gluconate given with some improvements of ionized calcium level from 0.94 to 0.98. on 04/08/2019 -continued IV calcium gluconate as 2000 grams IV and trend the ionized and serum calcium levels on 03/29/2019 03/30/2019" serum potassium 3.5 and ionized calcium 0.96 (these levels are generally unchanged despite oral calcium and 2 prior doses of IV calcium during this hospital stay totaling 3 grams IV when ionized calcium found to be 0.94 on this admission). I did order oral potassium and IV calcium gluconate x 1. I am unsure if patient will take these medications before she leaves. But informed patient to take oral supplements as prescribed as these supplements should help with termite inspector calcium and vitamin D repletion Patient does not want further lab draws patient denies current chest pain since yesterday evening. no shortness of breath. no abdomen pain. no vomiting. no headache. no dizziness. no distress (3) Abnormal EKG: Chest pain -on admission on 03/28/2019 patient presented with and new T wave inversions in lateral leads -at the time - No chest pain or palpitations. ED physician discussed with cardiology, who would like to continue to monitor patient overnight -troponins negative x 3, no telemetry events -04/08/2019: patient was feeling well today on day time exam and resting echocardiogram was performed then after 3:40 PM 04/08/2019, medical doctor notified that patient had acute sharp right sided chest pain. patient is re-assessed after episode of right sided chest pain that caused her distress. Morphine was ordered for which she declined (no acute telemetry events, nonischemic EKG , troponin was drawn which is negative). patient again normal state of comfort. her at bedside. they agree for patient to be continued to be monitored in the hospital overnight. no shortness of breath. no dizziness. no headache. no nausea. no vomiting. no dizziness. no headache. Musculoskeletal exam was performed and no signs of soft tissue or muscle tenderness 03/30/2019: no acute telemetry events and troponins subsequent to 04/08/2019 chest pain event is also negative follow ups 04/02/2019 11:20 AM Provider Rajan Hare MD Department Family Practice [facility] 04/13/2019 8:30 AM Provider Oracle Developer 1 Department Cardiac Studies, [facility] for stress test 04/19/2019 10:00 AM Provider Isaiah Youngblood DO Department Cardiology, [facility] 07/13/2019 10:30 AM Provider NAYLA [facility] Department Radiology [facility] 2nd [facility] 07/27/2019 10:00 AM Provider Karin Borrero MD Department Endocrinology, [place] discharge medications of calcium/vitamin D daily, vitamin 50,000 once every week x 4 weeks (can take on Mondays) [place] [id number] [place] [address] (4) Anxiety: -patient wishes for hospital discharge today on 03/30/2019. She reports that hospital stay is making her more anxious. Her at bedside agrees to the plan to take patient home with the outpatient follow ups. (5) Depression: -Continue SSRI, clonazepam PRN (6) IBS (irritable bowel syndrome): Bentyl QID PRN DVT Ppx: Tolu rae, early ambulation Code status: FULL PCP: Ananya Discharge Diagnosis: Abnormal EKG on admission as (new T wave Inversions in lateral leads) Nausea and Vomiting Diarrhea Hypocalcemia Vitamin D deficiency Chest Pain Anxiety Total Time Total Time Spent Total Time Spent (In Minutes): 40 minutes Total Time Includes: Examination of the Patient, Discharge Planning, Medication Reconciliation and Communication With Other Providers Discharge Plan Discharge Items Patient Disposition: Home - Self-Care Reason For Visit: N/V/D, T WAVE INVERSIONS Discharge Diagnosis: Abnormal EKG on admission as (new T wave Inversions in lateral leads) Nausea and Vomiting Diarrhea Hypocalcemia Vitamin D deficiency Chest Pain Anxiety Condition on Discharge: Good Activity: Per Instructions section Non-emergency contact: Primary Care Provider and Petroleum Refinery Laborer Call non-emergency contact if: you have any medication questions Follow-up/Referrals: Rajan Hare MD [Primary Care Provider] - 04/01/19 11:00 am (FOLLOW UP APT MADE AT 03/29/19 BY JLR. PATIENT SHOULD ARRIVE AT 10:45.) Diet: Regular Addtl Attending Provider Instructions: 04/02/2019 11:20 AM Provider Rajan Hare MD Department Family Practice [facility] 04/13/2019 8:30 AM Provider Oracle Developer 1 Department Cardiac Studies, [facility] for stress test 04/19/2019 10:00 AM Provider Isaiah Yougnblood DO Department Cardiology, [facility] 07/13/2019 10:30 AM Provider [address] Department Radiology [facility] 07/27/2019 10:00 AM Provider Karin Borrero MD Department Endocrinology, [place] discharge medications of calcium/vitamin D daily, vitamin 50,000 once every week x 4 weeks (can take on Mondays) [facility] [address] [facility], [place] [address] Pending Studies at Discharge: No Stand-Alone Forms: [facility] [employer], Smoking Cessation Medications and DC Order Prescriptions: New Caltrate 600-D Plus Minerals 600 mg calcium- 800 unit-50 mg Tablet 1 tab PO DAILY 30 Days Qty: 30 RF: 0 ergocalciferol (vitamin D2) [Vitamin D2] 1,250 mcg (50,000 unit) capsule 50,000 units PO .qweek 28 Days Qty: 4 RF: 0 Continued fluoxetine 20 mg capsule 20 mg PO QDL RF: 0 loratadine [Claritin] 10 mg Tablet 10 mg PO QAM RF: 0 dicyclomine 10 mg Capsule 10 mg PO QID PRN (Reason: Abdominal Discomfort) RF: 0 cyanocobalamin (vitamin B-12) 1,000 mcg Tablet, Sublingual 1,000 mcg SUBLINGUAL DAILY RF: 0 clonazepam 0.5 mg Tablet 0.5 mg PO BID PRN (Reason: Anxiety) RF: 0 levothyroxine 125 mcg tablet 125 mcg PO QAM RF: 0 triamcinolone acetonide 55 mcg Aerosol,[place] 2 spray INTRANASAL BID RF: 0 epinephrine [EpiPen] 0.3 mg/0.3 mL Auto-Injector 0.3 mg IM DIRECTED PRN (Reason: Allergic Reaction) RF: 0 albuterol sulfate 90 mcg/actuation HFA aerosol inhaler 2 puff Inhalation Q4H PRN (Reason: Shortness Of Breath) RF: 0 polyethylene glycol 3350 [Miralax] 17 gram/dose Powder 17 g PO DAILY PRN (Reason: Constipation) RF: 0 Women's One Daily 18 mg iron-400 mcg-500 mg Ca Tablet 1 tab PO QAM RF: 0 Fiber Gummies 2 gram Tablet,Chewable 2 g PO QAM RF: 0 ibuprofen 200 mg Tablet 200 mg PO Q6H PRN (Reason: Pain) RF: 0 Flovent HFA 110 mcg/actuation HFA aerosol inhaler 2 puff INHALATION BID RF: 0 Discharge Orders: Discharge Order (Routine); Ordered 03/30/19 Ordered By: Kedar Lazar Admission Data Admit Date/Time: 03/28/19 15:01 Attending Provider: Kedar Lazar Admit Provider: Andres Kessler Primary Care Provider: Rajan Hare Other Providers: Andres Kessler ; Isaiah Youngblood Other Interventions: Discharge Summary Assessment (RN) Last Done: 03/30/19 08:24
--- NOTE | 2019-03-30 15:02 | Electrocardiogram Report ---
Test Reason : Blood Pressure : / mmHG Vent. Rate : 059 BPM Atrial Rate : 059 BPM P-R Int : 172 ms QRS Dur : 078 ms QT Int : 418 ms P-R-T Axes : 056 037 054 degrees QTc Int : 413 ms Sinus bradycardia Nonspecific T wave abnormality Abnormal ECG When compared with ECG of 29-MAR-2019 15:33, Nonspecific T wave abnormality now evident in Lateral leads Confirmed by Raúl Haney ([id number]) on 03/30/2019 3:01:53 PM Referred By: REFERRED SELF Confirmed By:Raúl Haney
== END 2019-03-30 08:35 | disposition home or self-care (01) ==
LOC: 2W 10:37 → ED 10:37 → SUATTDRO 15:01 → 2W 15:33